=== PATIENT | female | born 1940 | race Caucasian/White ===

== ENCOUNTER 2017-02-25 08:54 | Outpatient (CLI) | payer MEDICARE, BC ==
[~2017-02-25] VITALS: Ht 152.4 cm; Wt 52.3 kg
--- NOTE | ~2017-02-25 | HEMODYNAMI ---
PATIENT:RAJIV AYON MEDICAL RECORD: [id number] : 40 LOCATION:[facility] ADMISSION DATE: 02/25/17 Generatedon:02/25/201711:57 Patient name: RAJIV AYON Patient #: [id number] SSN: : Date of study: 02/25/2017 Page: Of Hemodynamic Procedure Report Patient Data Patient Demographics Procedure consent was obtained First Name: RAJIV Gender: Female Last Name: GABO : 1940 Patient #: [id number] Age: 76 year(s) Race: Unknown Additional ID: [id number] Contact details [address]: [address] [place] [address] State: [place] City: [place] Zip code: [address] Past Medical History Allergies Allergen Reaction Date Comments Reported Other allergy 02/25/2017 FOODS Admission Admission Data Admission Date: 02/25/2017 Admission Time: 8:54 Lab Results Lab Result Date: 02/25/2017 Lab Result Time: 0:00 Biochemistry Name Units Result Min Max BUN mg/dl 10 --(-*--)-- 7 18 Creatinine mg/dl 0.6 --(*---)-- 0.6 1.3 CBC Name Units Result Min Max Hemoglobin g/dl 12.8 -*(----)-- 13.5 17.5 Procedure Procedure Types Cath Procedure Diagnostic Procedure [facility] w/Coronaries PCI Procedure Coronary Stent Initial Miscellaneous Procedures Moderate Sedation up to 15 minutes Procedure Description Procedure Date Procedure Date: 02/25/2017 Procedure Start Time: 11:37 Procedure End Time: 11:51 Procedure Staff Name Function Lance Paez MD Performing Physician Violeta Gamez RT Scrub Keenan Hidalgo RN Nurse Kylie Patel RT Monitor Procedure Data Cath Procedure Fluoroscopy Diagnostic fluoroscopy Total fluoroscopy Time: 3.3 time: 3.3 min min Contrast Material Contrast Material Type Amount (ml) Isovue 300 78 Entry Location Entry Primary Successful Side Size Upsize Upsize Entry Closure Succes sful Closure Location (Fr) 1 (Fr) 2 (Fr) Remarks Device Remarks Femoral Right 5 Fr 6 Fr Exoseal artery Short Estimated blood loss: 10 ml Diagnostic catheters Device Type Used For End Catheter Placement Cordis 5Fr Pigtail LV Angiography Catheter (MP) Cordis 5Fr JL 4.0 Procedure Catheter (MP) Cordis 5Fr 3DRC Catheter Procedure (MP) Procedure Complications No complications Procedure Medications Medication Administration Route Dosage Oxygen NC 2 l/min Lidocaine 2% added to field 20 Heparin Flush Bag added to field 2 bags (1000units/500ml NS) 0.9% NaCl I.V. 100 ml/hr Benadryl I.V. 50 mg Versed I.V. 1 mg Fentanyl I.V. 50 mcg Heparin Bolus I.V. 4000 units Integrilin (Bolus I.V. 4.5 ml 2mg/ml) Versed I.V. 1 mg Fentanyl I.V. 50 mcg Versed I.V. 1 mg Fentanyl I.V. 50 mcg Plavix P.O. 600 mg Hemodynamics Rest HGB: 12.8 (g/dl) Heart Rate: 83 (bpm) Snapshots Pre Cath Intra NCS Post Cath Vital Signs Time Heart Resp SPO2 NIBP (mmHg) Rhythm Pain Sedation Rate (ipm) (%) Status Level (bpm) 11:00:35 84 15 96 133/61(85) NSR 0 (11) 10(A) , No pain 11:04:51 85 19 95 121/59(99) NSR 0 (11) 10(A) , No pain 11:09:03 84 20 95 121/55(95) NSR 0 (11) 10(A) , No pain 11:13:15 87 19 96 122/57(100) NSR 0 (11) 10(A) , No pain 11:17:29 79 19 96 118/53(83) NSR 0 (11) 10(A) , No pain 11:21:41 79 19 94 127/54(86) NSR 0 (11) 10(A) , No pain 11:25:59 78 22 97 110/47(79) NSR 0 (11) 10(A) , No pain 11:30:11 77 20 93 110/45(72) NSR 0 (11) 10(A) , No pain 11:34:21 74 22 93 103/51(70) NSR 0 (11) 10(A) , No pain 11:38:29 78 28 94 103/46(69) NSR 0 (11) 9(A) , No pain 11:42:35 82 27 95 115/54(84) NSR 0 (11) 9(A) , No pain 11:46:47 85 30 96 109/50(76) NSR 0 (11) 9(A) , No pain 11:50:55 86 28 93 121/53(81) NSR 0 (11) 9(A) , No pain 11:56:32 86 30 94 117/53(81) NSR 0 (11) 10(A) , No pain Medications Time Medication Route Dose Verified Delivered Reason Notes Effectiveness by by 11:00:04 Oxygen NC 2 Lance Buffie used for l/min Jeannine Hidalgo RN procedure 11:00:12 Lidocaine 2% added 20ml Lance Lance for local to vial Jeannine Paez MD anesthetic field 11:00:17 Heparin Flush added 2 Lance Lance used for Bag to bags Jeannine Paez MD procedure (1000units/500ml field NS) 11:00:28 0.9% NaCl I.V. 100 Lance Buffie Per physician ml/hr Jeannine Hidalgo RN 11:00:38 Benadryl I.V. 50 mg Lance Buffie used for Jeannine Hidalgo RN procedure 11:37:46 Versed I.V. 1 mg Lance Buffie for sedation Jeannine Hidalgo RN 11:37:51 Fentanyl I.V. 50 Lance Buffie for sedation mcg Jeannine Hidalgo RN 11:40:25 Versed I.V. 1 mg Lance Buffie for sedation Jeannine Hidalgo RN 11:40:28 Fentanyl I.V. 50 Lance Buffie for sedation mcg Jeannine Hidalgo RN 11:41:18 Heparin Bolus I.V. 4000 Lance Buffie for verifi ed units Jeannine Hidalgo RN anticoagulation with dr paez 11:44:10 Integrilin I.V. 4.5 Lacne Buffie for Wasted (Bolus 2mg/ml) ml Jeannine Hidalgo RN antiplatelet 5.5 ml therapy of vial 11:48:09 Versed I.V. 1 mg Lance Buffie for sedation Jeannine Hidalgo RN 11:48:13 Fentanyl I.V. 50 Lance Hussein for sedation mcg Jeannine Hidalgo RN 11:53:25 Plavix P.O. 600 Lance Hussein for mg Jeannine Hidalgo RN antiplatelet therapy Procedure Log Time Note 10:43:53 Diagnostic Cath status Elective 10:44:16 Keenan Hidalgo RN sent for patient. Start room use. 10:44:18 Time tracking: Regular hours 10:44:23 Plan of Care:Hemodynamics will remain stable., Cardiac rhythm will remain stable., Comfort level will be maintained., Respiratory function will remain adequate., Patient/ family verbilizes understanding of procedure., Procedure tolerated without complication., Recovers from procedure without complications.. 10:44:30 Patient received from Outpatients to CCL 2 Alert and oriented. Tansferred to table in Supine position. 10:44:32 Warm blankets applied, and ricardo hugger turned on for patient comfort. 10:44:33 Correct patient and procedure confirmed by team. 10:44:46 H&P Date Dictated: 02/16/2017 Within 30 days and on chart., H&P Addendum completed by physician on day of procedure. (MUST COMPLETE FOR ALL OUTPATIENTS). 10:44:48 Pre-procedure instructions explained to patient. 10:44:49 Family in waiting room. 10:44:51 Patient NPO since Midnight. 10:45:27 Patient allergic to Other allergyFOODS 10:45:32 Is the patient allergic to Iodine/contrast media? No. 10:51:31 Is patient on blood thinner?No 10:51:35 Patient diabetic? No. 10:51:41 Snore? Yes 10:51:42 Sleep apnea? No 10:51:47 Dentures? No ? 10:52:04 Patient pain scale 0/10 ?. 10:52:15 IV patent on arrival in left forearm with 0.9% NaCl at O. 10:55:30 Lab results completed and on chart. 10:56:01 Lab Result : Creatinine 0.6 mg/dl 10:56:01 Lab Result : BUN 10 mg/dl 10:56:01 Lab Result : Hemoglobin 12.8 g/dl 10:56:11 Right groin area was prepped with chlora-prep and draped in sterile fashion 10:56:12 Alarms reviewed by R. N. 10:56:13 Sharps counted by scrub and verified by R.NLevar 10:56:14 Physician paged 10:59:26 Vital chart was started 11:00:04 Oxygen 2 l/min NC was administered by Keenan Hidalgo RN; used for procedure; 11:00:12 Lidocaine 2% 20ml vial added to field was administered by Lance Paez MD; for local anesthetic; 11:00:17 Heparin Flush Bag (1000units/500ml NS) 2 bags added to field was administered by Lance Paez MD; used for procedure; 11:00:28 0.9% NaCl 100 ml/hr I.V. was administered by Keenan Hidalgo RN; Per physician; 11:00:38 Benadryl 50 mg I.V. was administered by Keenan Hidalgo RN; used for procedure; 11:02:04 Zero performed for pressure channel P1 11:03:02 Signed procedure consent form obtained from patient. 11:03:03 ECG and BP/O2 sat monitors applied to patient. 11:03:04 Baseline sample Acquired. 11:03:08 Rhythm: sinus rhythm 11:03:10 Full Disclosure recording started 11:03:35 Airway obstruction? Yes Asthma COPD 11:14:31 Physician arrived 11:14:32 Final Timeout: patient, procedure, and site verified with staff and physician. All members of the team are in agreement. 11:14:35 Right groin site verified by team. 11:14:39 Sedation plan: IV Moderate Sedation Versed, Fentanyl 11:14:47 Physical assessment completed. ASA score P 2 - A patient with mild systemic disease as per Lance Paez MD. 11:36:29 --------ALL STOP TIME OUT------ 11:37:44 Procedure started. 11:37:46 Versed 1 mg I.V. was administered by Keenan Hidalgo RN; for sedation; 11:37:50 Use device set Femoral Dx 11:37:51 Fentanyl 50 mcg I.V. was administered by Keenan Hidalgo RN; for sedation; 11:37:52 Acist Syringe opened to sterile field. 11:37:54 Bag Decanter opened to sterile field. 11:37:55 Medline Cath Pack opened to sterile field. 11:37:55 Terumo 5Fr [place] Sheath opened to sterile field. 11:37:56 St Adolfo 260cm J .035 wire opened to sterile field. 11:37:58 Acist Hand Control opened to sterile field. 11:37:58 Acist Manifold opened to sterile field. 11:37:58 Diagnostic Infinity 5Fr Multipack catheter opened to sterile field. 11:37:59 Tegaderm 4 x 4 opened to sterile field. 11:38:10 A 5 Fr sheath was inserted into the Right Femoral artery 11:38:29 A Cordis 5Fr Pigtail Catheter (MP) was advanced over the wire and used for LV Angiography. 11:39:04 EF : 70 % 11:39:07 Catheter removed. 11:39:14 A Cordis 5Fr JL 4.0 Catheter (MP) was advanced over the wire and used for Procedure. 11:39:18 LCA angiography performed. 11:40:11 Catheter removed. 11:40:18 A Cordis 5Fr 3DRC Catheter (MP) was advanced over the wire and used for Procedure. 11:40:25 Versed 1 mg I.V. was administered by Keenan Hidalgo RN; for sedation; 11:40:28 Fentanyl 50 mcg I.V. was administered by Keenan Hidalgo RN; for sedation; 11:40:53 Catheter removed. 11:41:18 Heparin Bolus 4000 units I.V. was administered by Keenan Hidalgo RN; for anticoagulation; verified with dr paez 11:41:22 Terumo 6Fr [place] Sheath opened to sterile field. 11:41:22 Merit BasixCompak Inflation Kit opened to sterile field. 11:41:23 Najera Whisper J 300cm 0.014 guide wire opened to sterile field. 11:41:23 Cordis 6FR XB 3.5 guide catheter opened to sterile field. 11:41:27 Proceeding to intervention. 11:41:36 Sheath upsized to a 6 Fr Short. 11:41:51 6 Fr XBLAD 3.5 guide catheter was inserted over the wire 11:42:38 Whisper wire advanced. 11:44:10 Integrilin (Bolus 2mg/ml) 4.5 ml I.V. was administered by Keenan Hidalgo RN; for antiplatelet therapy; Wasted 5.5 ml of vial 11:44:40 Inflation number: 1 A Streemio [place] 2.0 X 30 balloon was prepped and advanced across the Mid LAD, then inflated to 17 MATT for 0:10 (min:sec). 11:45:32 Balloon removed over the wire. 11:48:09 Versed 1 mg I.V. was administered by Keenan Hidalgo RN; for sedation; 11:48:10 Inflation Number: 1 A Medtronic Resolute 2.5 X 30 stent was prepped and advanced across the Mid LAD1. The stent was deployed at 11 MATT for 0:10 (min:sec). 11:48:13 Fentanyl 50 mcg I.V. was administered by Keenan Hidalgo RN; for sedation; 11:48:16 Wire removed. 11:48:17 Guide catheter removed. 11:48:27 Cordis 6Fr Exoseal opened to sterile field. 11:49:22 Sheath removed intact; hemostasis achieved with Exoseal to the Right Femoral artery. 11:49:26 Procedure ended.(Physican Out) 11:49:39 Fluoroscopy time 03.30 minutes. 11:49:57 Contrast amount:Isovue 300 78ml. 11:49:59 Sharps counted by scrub and verified by R.N. 11:50:05 Insertion/operative site no bleeding no hematoma. 11:50:09 Post right femoral artery:stable 11:50:11 Post Procedure Pulses reassessed and unchanged 11:50:16 Post procedure rhythm: unchanged. 11:50:19 Estimated blood loss: 10 ml 11:50:21 Post procedure instruction explained to patient.Patient verbalizes understanding. 11:50:35 Procedure type changed to Cath procedure, Diagnostic procedure, LHC, LHC w/Coronaries, PCI procedure, Coronary Stent Initial, Miscellaneous Procedures, Moderate Sedation up to 15 minutes 11:50:37 Procedure and supply charges have been captured, reviewed, submitted and are correct. 11:51:01 Procedure Complication : No complications 11:51:06 Vital chart was stopped 11:51:07 See physician's report for complete and final results. 11:51:09 Report given to Pre/Post Procedure Room. 11:51:15 Patient transfered to Pre/Post Procedure Room with Stretcher. 11:51:18 Procedure ended. 11:51:18 Full Disclosure recording stopped 11:51:22 End room use (Document Last) 11:52:32 ACC-PCI Only Patient was given prescriptions, or instructed by Lance Paez MD to start/continue the following medications upon discharge: Plavix 11:53:25 Plavix 600 mg P.O. was administered by Keenan Hidalgo RN; for antiplatelet therapy; Intervention Summary Intervention Notes Time ActionType Lesion and Equipment Action# Pressure Duration Attributes Used 11:44:40 Inflate Mid LAD [place] 1 17 00:10 balloon Sci [place] 2.0 X 30 balloon 11:48:10 Place stent Mid LAD1 Medtronic 1 11 00:10 Resolute 2.5 X 30 stent Device Usage Item Name Manufacture Quantity Catalog Number Hospital Part Current Mini [facility] Lot# / Charge Number Stock Stock Serial# Code Acist Acist 1 [id number] 090979 286125 435678 20 Syringe Medical Systems Inc Bag Microtek 1 2002S 458061 47099 471135 5 Kivra. Medline Cardinal 1 [id number] 854566 98482 414877 5 Cath Pack Health Terumo 5Fr Terumo 1 [id number] 677381 336224 068219 [address] Adolfo 1 624544 485865 854732 905892 30 260cm J .035 wire Acist Hand Acist 1 39769 566850 582002 928033 5 [place] [employer] Inc Acist Acist 1 08487 383680 552066 140230 5 4-Tell Medical Systems Inc Diagnostic Cardinal 1 [id number] 772852 16778 267292 30 Infinity Health 5Fr Multipack catheter Tegaderm 4 3M 1 1626W 516422 597633 804237 5 x 4 Cordis 5Fr Cardinal 1 776507 5 Pigtail Health Catheter (MP) Cordis 5Fr Cardinal 1 158624 5 JL 4.0 Health Catheter (MP) Cordis 5Fr Cardinal 1 651989 5 3DRC Health Catheter (MP) Terumo 6Fr Terumo 1 PED959 659505 050872 256863 40 [place] Sheath Merit Merit 1 CY6707 086023 456064 198581 15 BasStars Express Medical Inflation Kit Najera Najera 1 [id number] 570363 709410 348158 5 Whisper J Vascular 300cm 0.014 guide wire Cordis 6FR Cardinal 1 [id number] 524213 929689 561828 2 XB 3.5 Health guide catheter Temple[place] Sci Temple[place] 1 [id number] 284796 206415 564678 1 [id number] [place] Scientific 2.0 X 30 balloon Medtronic Medtronic 1 [id number] 790119 419358 3 [id number] Resolute 2.5 X 30 stent Cordis 6Fr Cardinal 1 EX600 008049 205676 986409 10 [facility] Signature Audit Outing Stage Time Signature Unsigned Intra-Procedure 02/25/2017 Kylie Patel 11:57:36 AM RT(R) Signatures Monitor : Kylie Patel Signature : RT Date : Time : [place] [address] [place] [address]
--- NOTE | ~2017-02-25 | OP ---
PATIENT NAME: RAJIV AYON MEDICAL RECORD: [id number] :40 LOCATION:D.CAT ADMISSION DATE: SURGEON: SHAMIR COLMENARES MD DATE OF OPERATION: 02/25/2017 PROCEDURES: 1. PTCA stent, LAD. 2. Left heart catheterization. 3. Selective coronary angiography. 4. Left ventriculogram. INDICATIONS: Angina and coronary artery disease. PROCEDURE IN DETAIL: After informed consent was obtained and after detailed explanation of risks, benefits as well as alternative therapies, the patient elected to proceed with angiogram and angioplasty. The right femoral area is prepped and draped in normal sterile fashion. The right femoral artery was cannulated via modified Seldinger technique with placement of 6-Polish sheath. All catheters exchanged through this sheath. FINDINGS: Left ventriculogram was performed in standard 30-degree FIGUEROA view, reveals good cardiac wall motion throughout all segments. Overall ejection fraction is 60%. SELECTIVE CORONARY ANGIOGRAPHY: 1. Left main showed no significant angiographic disease. 2. Left anterior descending has 95% stenosis proximally. 3. Left circumflex has 90% stenosis in the mid vessel. 4. Right coronary has a 90% stenosis in the proximal vessel. PTCA STENT OF THE LAD: The stent used was a 2.5 x 30 mm Resolute. Result was 0% residual stenosis. OVERALL IMPRESSION: Successful percutaneous transluminal coronary angioplasty stent of the left anterior descending going from 95% initial stenosis to 0% residual. PLAN: PTCA stent of the left circumflex and RCA in the near future in a staged fashion. TRANSINT:[id number] Voice Confirmation ID: [id number] DOCUMENT ID: [id number] SHAMIR COLMENARES MD CC: [id number] DICTATION DATE: 02/25/17 1154 INCOME TAX EXPERT: 02/25/172017 [facility] CLI 02/25/17 [place] [address]
[2017-02-25] MEDS ORDERED: CARDIZEM CD300 MG PO (10:11)
[2017-02-25] MEDS ORDERED: SYNTHROID112 MCG PO (10:12)
[2017-02-25] MEDS ORDERED: PULMICORT0.25 MG/1 INH (10:13)
[2017-02-25] MEDS ORDERED: PROVENTIL/2.5 MG/3 M INH (10:13)
[2017-02-25] MEDS ORDERED: PROAIR HFA8.5 GM INH (10:13)
[2017-02-25 10:15] VITALS: BP 142/57; Ht 152.4 cm; Wt 52.3 kg
[2017-02-25 10:33] LABS: BASOPHILS 0.6 % (0.0-2.0); EOSINOPHILS 4.7 % (0-7); HEMATOCRIT 38.3 % (36.0-48.0); HEMOGLOBIN 12.8 g/dL (12-16); IMMATURE GRANULOCYTES 0.5 % (0-5); LYMPHOCYTES 20.8 % (15-50); MCH 30.8 pg (26.0-34.0); MCHC 33.4 g/dL (31.0-37.0); MCV 92.1 fL (80.0-100.0); MONOCYTES 7.9 % (2-11); NEUTROPHILS 65.5 % (40-80); PLATELET COUNT 171 10x3/uL (130-400); RBC 4.16 10x6/uL (4.00-5.40); RDW 12.4 % (11.5-14.5); WBC 8.8 10x3/uL (4.8-10.8)
[2017-02-25 10:48] LABS: CALC OSMOLALITY 268 mosm/kg (275-300); CALCIUM 8.8 mg/dL (8.5-10.1); CARBON DIOXIDE 20.2 mmol/L (21.0-32.0); CHLORIDE - SERUM 104 mmol/L (98-107); CREATININE - SERUM 0.6 mg/dL (0.6-1.3); GLUCOSE 94 mg/dL (74-106); POTASSIUM - SERUM 4.7 mmol/L (3.5-5.1); SODIUM 135 mmol/L (136-145); UREA NITROGEN 10 mg/dL (7-18); eGFR NON AFRICAN AMERICAN > 90 mL/min (90-120)
[2017-02-25] MEDS ORDERED: PLAVIX75 MG PO (12:29)
--- NOTE | 2017-02-25 12:48 | NUR ---
1230 PT DENIES ANY C/O. DRESSING TO RIGHT GROIN IS CDI, NO BLEEDING OR HEMATOMA NOTED. PEDAL PULSES PALPABLE. VSS, RR EVEN AND UNLABORED. FAMILY AT BEDSIDE AND CALL LIGHT IN REACH. 1245 PT HAS VOIDED QS USING BEDPAN. DENIES ANY C/O. RIGHT GROIN DRESSING CDI, NO BLEEDING OR HEMATOMA NOTED. FAMILY AT BEDSIDE.
--- NOTE | 2017-02-25 15:06 | NUR ---
1245-RESTING WITH RIGHT LEG STRAIGHT, GROIN CDI, NO HEMATOMA OR BLEEDING NOTED, SOFT TO TOUCH
== END 2017-02-25 16:05 | disposition home or self-care (01) ==
LOC: D.CATH 08:54 → EDSEX 11:00 → D.CATH 11:00
PROVIDERS: Internal Medicine Interventional Cardiology
DX: I25.119 Atherosclerotic heart disease of native coronary artery with unspecified angina pectoris (principal); R06.02 Shortness of breath; I10 Essential (primary) hypertension; R94.30 Abnormal result of cardiovascular function study, unspecified
CPT/HCPCS: 93458; C9600

== ENCOUNTER 2017-03-01 07:47 | Outpatient (CLI) | payer MEDICARE, BC ==
[~2017-03-01] VITALS: Ht 152.4 cm; Wt 52.3 kg
--- NOTE | ~2017-03-01 | OP ---
PATIENT NAME: RAJIV AYON MEDICAL RECORD: [id number] :40 LOCATION:D.CAT ADMISSION DATE: SURGEON: SHAMIR COLMENARES MD DATE OF OPERATION: 03/02/2017 PROCEDURES: 1. PTCA stent left circumflex. 2. Selective coronary angiography. INDICATION: Angina and coronary artery disease. PROCEDURE: After informed consent was obtained and after a detailed explanation of risks, benefits as well as alternative therapies, the patient elected to proceed with angiogram and angioplasty. The left femoral area had a preexisting sheath from peripheral intervention. All catheters exchanged through this sheath. FINDINGS: The left circumflex has 80% to 90% stenosis in the mid vessel addressed with a 2.25 x 14 mm Resolute stent. Result was 0% residual stenosis. OVERALL IMPRESSION: Successful percutaneous transluminal coronary angioplasty stent of the left circumflex going from 80% to 90% initial stenosis to 0% residual stenosis. TRANSINT:[id number] Voice Confirmation ID: [id number] DOCUMENT ID: [id number] SHAMIR COLMENARES MD CC: [id number] DICTATION DATE: 03/02/17 1258 SYSTEMS QA ANALYST: 03/02/171947 DEP CLI 03/02/17 [facility] [address] [id number]
--- NOTE | ~2017-03-01 | OP ---
PATIENT NAME: RAJIV AYON MEDICAL RECORD: [id number] :40 LOCATION:D.M2 D.2125 ADMISSION DATE: SURGEON: SHAMIR COLMENARES MD DATE OF OPERATION: 03/01/2017 PROCEDURES: 1. PTCA stent RCA. 2. Selective coronary angiography. INDICATION: Angina and coronary artery disease. PROCEDURE IN DETAIL: After informed consent was obtained and after detailed explanation of risks, benefits as well as alternative therapies, the patient elected to proceed with angiogram and angioplasty. The right femoral area is prepped and draped in normal sterile fashion. The right femoral artery was cannulated via modified Seldinger technique with placement of 6-[place] sheath. All catheters exchanged through this sheath. FINDINGS: The right coronary has a 90% to 95% stenosis throughout the mid portion vessel. This was addressed with a 3.0 x 30 and 3.0 x 18, both Integrity stents. Result was 0% residual stenosis. OVERALL IMPRESSION: Successful percutaneous transluminal coronary angioplasty stent of the right coronary artery going from 90% to 95% initial stenosis to 0% residual. TRANSINT:[id number] Voice Confirmation ID: [id number] DOCUMENT ID: [id number] SHAMIR COLMENARES MD CC: [id number] DICTATION DATE: 03/01/17 1049 RIBBON WINDER: 03/01/17 1209 [facility] [address] [place] [address]
--- NOTE | ~2017-03-01 | HEMODYNAMI ---
PATIENT:RAJIV AYON MEDICAL RECORD: [id number] : 40 LOCATION[facility] [address] [facility] [id number] ADMISSION DATE: 03/01/17 Generatedon:03/02/201712:58 Patient name: RAJIV AYON Patient #: [id number] SSN: : Date of study: 03/02/2017 Page: Of Hemodynamic Procedure Report Patient Data Patient Demographics Procedure consent was obtained First Name: RAJIV Gender: Female Last Name: GABO : 1940 Patient #: [id number] Age: 76 year(s) Race: Unknown Additional ID: [id number] Contact details [address]: [address] [place] [address] State: [place] City: [place] Zip code: [address] Past Medical History Allergies Allergen Reaction Date Comments Reported Other allergy 02/25/2017 FOODS Admission Admission Data Admission Date: 03/01/2017 Admission Time: 7:47 Admit Source: Other Room #: D.2125 Height (in.): 60 BSA: 1.48 (m2) Height (cm.): 152.4 BMI: 22.46 (kg/m2) Weight (lbs.): 115 Weight (kg.): 52.16 Lab Results Lab Result Date: 03/02/2017 Lab Result Time: 0:00 Biochemistry Name Units Result Min Max BUN mg/dl 15 --(--*-)-- 7 18 Creatinine mg/dl 0.5 -*(----)-- 0.6 1.3 CBC Name Units Result Min Max Hemoglobin g/dl 13.4 -*(----)-- 13.5 17.5 Procedure Procedure Types Cath Procedure PCI Procedure Coronary Stent Initial Miscellaneous Procedures Moderate Sedation up to 30 minutes Peripheral vascular Intervention Stent Stent-Fem/Popw/plasty Procedure Description Procedure Date Procedure Date: 03/02/2017 Procedure Start Time: 12:36 Procedure End Time: 12:57 Procedure Staff Name Function Lance Paez MD Performing Physician Bryanna Velasquez RN Nurse Guillermo Hutchinson RT Monitor Farhad Sosa RT Scrub Procedure Data Cath Procedure Fluoroscopy Diagnostic fluoroscopy Total fluoroscopy Time: 8.4 time: 8.4 min min Diagnostic fluoroscopy Total fluoroscopy dose: 243 dose: 243 mGy mGy Contrast Material Contrast Material Type Amount (ml) Isovue 300 124 Entry Location Entry Primary Successful Side Size Upsize Upsize Entry Closure Succes sful Closure Location (Fr) 1 (Fr) 2 (Fr) Remarks Device Remarks Femoral Right 6 Fr 6 Fr Exoseal artery Short Long Diagnostic catheters Device Type Used For End Catheter Placement Diagnostic 5Fr IMT Catheter Procedure Complications No complications Procedure Medications Medication Administration Route Dosage Oxygen NC 2 l/min Heparin Flush Bag added to field 2 bags (1000units/500ml NS) Lidocaine 2% added to field 20 Versed I.V. 1 mg Fentanyl I.V. 50 mcg Versed I.V. 1 mg Fentanyl I.V. 50 mcg Fentanyl I.V. 50 mcg Heparin Bolus I.V. 5000 units Hemodynamics Rest BSA: 1.48 (m2) HGB: 13.4 (g/dl) O2 Consumption: Estimated: 145.98 (ml/min) O2 Co nsumption indexed: Estimated:98.64 (ml/min/m) Heart Rate: 91 (bpm) Snapshots Pre Cath Intra NCS Post Cath Vital Signs Time Heart Resp SPO2 NIBP (mmHg) Rhythm Pain Sedation Rate (ipm) (%) Status Level (bpm) 12:19:03 94 16 97 157/72(123) NSR 0 (11) 10(A) , No pain 12:23:21 91 14 98 159/67(111) NSR 0 (11) 10(A) , No pain 12:27:41 80 16 97 137/64(113) NSR 0 (11) 10(A) , No pain 12:31:53 77 16 95 135/66(105) NSR 0 (11) 10(A) , No pain 12:36:03 79 15 95 134/71(104) NSR 0 (11) 9(A) , No pain 12:40:15 78 16 96 131/63(94) NSR 0 (11) 9(A) , No pain 12:44:27 71 16 96 124/60(93) NSR 0 (11) 9(A) , No pain 12:48:37 77 16 97 127/61(103) NSR 0 (11) 9(A) , No pain 12:52:48 83 16 96 120/56(92) NSR 0 (11) 9(A) , No pain 12:56:40 81 16 96 131/60(104) NSR 0 (11) 9(A) , No pain Medications Time Medication Route Dose Verified Delivered Reason Notes Effectiveness by by 12:21:51 Oxygen NC 2 Lance Bryanna Per physician l/min Jeannine Velasquez RN 12:21:59 Heparin Flush added 2 Lance Lance used for Bag to bags Jeannine Paez MD procedure (1000units/500ml field NS) 12:22:06 Lidocaine 2% added 20ml Lance Lance used for to vial Jeannine Paez MD procedure field 12:28:43 Versed I.V. 1 mg Lance Bryanna for sedation Jeannine Velasquez RN 12:28:49 Fentanyl I.V. 50 Lance Bryanna for sedation mcg Jeannine Velasquez RN 12:30:49 Versed I.V. 1 mg Lance Bryanna for sedation Jeannine Velasquez RN 12:31:13 Fentanyl I.V. 50 Lance Bryanna for sedation mcg Jeannine Velasquez RN 12:34:01 Fentanyl I.V. 50 Lance Bryanna for sedation mcg Jeannine Velasquez RN 12:35:32 Heparin Bolus I.V. 5000 Lance Bryanna for dose units Jeannine Velasquez RN anticoagulation verified [facility] Procedure Log Time Note 11:45:29 Guillermo Hutchinson RT(R) sent for patient. Start room use. 12:03:41 Time tracking: Regular hours 12:03:45 Plan of Care:Hemodynamics will remain stable., Cardiac rhythm will remain stable., Comfort level will be maintained., Respiratory function will remain adequate., Patient/ family verbilizes understanding of procedure., Procedure tolerated without complication., Recovers from procedure without complications.. 12:13:27 Patient received from Pre/Post Procedure Room to CCL 2 Alert and oriented. Tansferred to table in Supine position. 12:13:28 Warm blankets applied, and ricardo hugger turned on for patient comfort. 12:13:28 Correct patient and procedure confirmed by team. 12:13:29 Signed procedure consent form obtained from patient. 12::30 ECG and BP/O2 sat monitors applied to patient. 12:17:52 Vital chart was started 12:21:51 Oxygen 2 l/min NC was administered by Bryanna Velasquez RN; Per physician; 12:21:59 Heparin Flush Bag (1000units/500ml NS) 2 bags added to field was administered by Lance Paez MD; used for procedure; 12::06 Lidocaine 2% 20ml vial added to field was administered by Lance Paez MD; used for procedure; 12::23 Baseline sample Acquired. 12::27 Rhythm: sinus tachycardia 12::28 Full Disclosure recording started 12:26:12 H&P Date Dictated: 03/01/2017 Within 30 days and on chart.. 12:26:13 Pre-procedure instructions explained to patient. 12:26:14 Pre-op teaching completed and patient verbalized understanding. 12:26:16 Family in waiting room. 12:26:20 Patient NPO since Midnight. 12:26:37 Is the patient allergic to Iodine/contrast media? No. 12:26:39 Was the patient premedicated? No 12:26:44 Is patient on blood thinner?Yes 12:26:47 ACC The patient was administered the following blood thiners within the last 24 hours: ACCPlavix 12:26:49 Patient diabetic? No. 12:26:50 ----Pre-sedation anethsthesia assessment.---- 12::52 Previous problem with sedation/anesthesia? No ? 12::54 Snore? Yes 12:26:55 Sleep apnea? No 12:27:04 Deviated septum? No 12:27:05 Opens mouth fully? Yes 12:27:06 Sticks out tongue? Yes 12:27:08 Airway obstruction? No ? 12:27:18 Dentures? Yes out 12::23 Pre procedure: left dorsailis pedis pulse 0-Absent 12:27:30 Patient pain scale 0/10 ?. 12:27:41 IV patent on arrival in left antecubital with 0.9% NaCl at 10ml/hr. 12:28:14 Lab Result : BUN 15 mg/dl 12::14 Lab Result : Hemoglobin 13.4 g/dl 12:28:14 Lab Result : Creatinine 0.5 mg/dl 12::32 Lab results completed and on chart. 12::36 Bilateral groins area was prepped with chlora-prep and draped in sterile fashion 12::37 Alarms reviewed by R. N. 12::38 Sharps counted by scrub and verified by R.N. 12::38 --------ALL STOP TIME OUT------ 12::39 Final Timeout: patient, procedure, and site verified with staff and physician. All members of the team are in agreement. 12:28:40 Bilateral groins site verified by team. 12::43 Versed 1 mg I.V. was administered by Bryanna Velasquez RN; for sedation; 12::44 Physical assessment completed. ASA score P 2 - A patient with mild systemic disease as per Lance Paez MD. 12::49 Fentanyl 50 mcg I.V. was administered by Bryanna Velasquez RN; for sedation; 12:28:49 Sedation plan: IV Moderate Sedation Versed, Fentanyl 12:28:54 Use device set Femoral PCI 12:28:56 Acist Syringe opened to sterile field. 12:28:56 Acist Hand Control opened to sterile field. 12:28:56 Bag Decanter opened to sterile field. 12:28:57 Medline Cath Pack opened to sterile field. 12:28:57 Terumo 6Fr Black Sheath opened to sterile field. 12:28:58 St Adolfo 260cm J .035 wire opened to sterile field. 12:28:58 Merit BasixCompak Inflation Kit opened to sterile field. 12:28:58 Acist Manifold opened to sterile field. 12:28:59 Tegaderm 4 x 4 opened to sterile field. 12:29:05 Najera Whisper J 300cm 0.014 guide wire opened to sterile field. 12:30:49 Versed 1 mg I.V. was administered by Bryanna Velasquez RN; for sedation; 12:31:13 Fentanyl 50 mcg I.V. was administered by Bryanna Velasquez RN; for sedation; 12:34:01 Fentanyl 50 mcg I.V. was administered by Bryanna Velasquez RN; for sedation; 12:34:41 Terumo 6Fr Black Destination Sheath opened to sterile field. 12:34:44 Procedure started. 12:35:32 Heparin Bolus 5000 units I.V. was administered by Bryanna Velasquez RN; for anticoagulation; dose verified wtih dr paez 12:35:58 Zero performed for pressure channel P1 12:36:12 Local anesthetic to left femerol artery with Lidocaine 2% by Lance Paez MD.INITIAL ACCESS ONLY 12:36:24 A 6 Fr Short sheath was inserted into the Right Femoral artery 12:36:40 A Diagnostic 5Fr IMT Catheter was advanced over the wire and used for . 12:36:47 5 Fr IMT guide catheter was inserted over the wire 12:36:50 GLIDE wire advanced. 12:37:36 Terumo ANGLED SS 260CM glide wire opened to sterile field. 12:37:45 Dingle Sci Choice PT Extra Support J 300cm .014 gu opened to sterile field. 12:38:20 Catheter removed. 12:38:27 Sheath upsized to a 6 Fr Long. 12:39:27 Wire removed. 12:39:32 CPTES wire advanced. 12:41:43 Inflation number: 1 A Dingle Sci Burnet 4.0 X 20 balloon was prepped and advanced across the Mid Superficial Femoral, Right, then inflated to 7 MATT for 0:12 (min:sec). 12:42:00 Balloon removed over the wire. 12:43:43 Cordis SMART Flex 5 X 30 X 120 stent was deployed across Mid Superficial Femoral, Right . 12:43:47 Stent catheter was removed intact over wire. 12:44:43 Inflation number: 2 The Dingle Sci Burnet 4.0 X 20 balloon was reinflated across the Mid Superficial Femoral, Right, to 7 MATT for 0:10 (min:sec). 12:45:20 Balloon removed over the wire. 12:45:22 Wire removed. 12:46:00 6 Fr XBLAD 3.5 guide catheter was inserted over the wire 12:46:06 WHISPER wire advanced. 12:48:02 Cordis 6Fr Exoseal opened to sterile field. 12:49:38 Inflation number: 1 A Dingle Sci Burnet 2.0 X 15 balloon was prepped and advanced across the Mid CX, then inflated to 13 MATT for 0:12 (min:sec). 12:49:42 Balloon removed over the wire. 12:52:31 Inflation Number: 2 A Medtronic Resolute 2.25 X 14 stent was prepped and advanced across the Mid CX. The stent was deployed at 9 MATT for 0:13 (min:sec). 12:52:39 Stent catheter was removed intact over wire. 12:52:40 Wire removed. 12:52:40 Guide catheter removed. 12:52:48 Sheath removed intact; hemostasis achieved with Exoseal to the Right Femoral artery. 12:52:51 Procedure ended.(Physican Out) 12:53:06 Procedure type changed to Cath procedure, PCI procedure, Coronary Stent Initial, Miscellaneous Procedures, Moderate Sedation up to 30 minutes, Peripheral vascular Intervention, Stent, Stent-Fem/Popw/plasty 12:53:12 Fluoroscopy time 08.40 minutes. 12:53:17 Fluoroscopy dose: 243 mGy 12:53:17 Flurop Dose total: 243 12:54:45 Contrast amount:Isovue 300 124ml. 12:54:46 Sharps counted by scrub and verified by R.N. 12:54:48 Insertion/operative site no bleeding no hematoma. 12:54:55 Post-op/insertion site Left Femoral artery dressed using a 4 x 4 and Tegaderm. 12:54:59 Post left femerol artery:stable 12:55:02 Post procedure: left dorsailis pedis pulse 1+ Palpable, but thready & weak; easily obliterated. 12:55:06 Post procedure rhythm: sinus rhythm 12:55:48 Post procedure instruction explained to patient.Patient verbalizes understanding. 12:57:08 Procedure and supply charges have been captured, reviewed, submitted and are correct. 12:57:12 Procedure Complication : No complications 12:57:18 Vital chart was stopped 12:57:19 See physician's report for complete and final results. 12:57:23 Report given to PCU. 12:57:26 Patient transfered to PCU with Bed. 12:57:28 Procedure ended. 12:57:28 Full Disclosure recording stopped 12:57:33 End room use (Document Last) Intervention Summary Intervention Notes Time ActionType Lesion and Equipment Action# Pressure Duration Attributes Used 12:41:43 Inflate Mid Dingle 1 7 00:12 balloon Superficial Sci Femoral, Burnet Right 4.0 X 20 balloon 12:43:43 Deploy self Mid Cordis 1 expanding Superficial SMART stent Femoral, Flex 5 X Right 30 X 120 stent 12:44:43 Reinflate Mid Dingle 2 7 00:10 balloon Superficial Sci Femoral, Burnet Right 4.0 X 20 balloon 12:49:38 Inflate Mid CX Dingle 1 13 00:12 balloon Sci Burnet 2.0 X 15 balloon 12:52:31 Place stent Mid CX Medtronic 2 9 00:13 Resolute 2.25 X 14 stent Device Usage Item Name Manufacture Quantity Catalog Number Hospital Part Current Mini mal Lot# / Charge Number Stock Stock Serial# Code Acist Acist 1 [id number] [id number] 455937 [id number] 20 Syringe Medical Systems Inc Acist Hand Acist 1 61057 513263 968447 056201 5 Control Medical Systems MicroInvention Bag Microtek 1 2002S [id number] 16290 127385 5 DecFookyZ Medical Inc. Medline Cardinal 1 [id number] 393953 03594 318883 5 Cath Pack Health Terumo 6Fr Terumo 1 [id number] 935028 662168 899168 [address] Adolfo St Adolfo 1 002898 455945 105955 082093 30 260cm J .035 wire Merit Merit 1 [id number] 047995 385953 732386 15 CaterCow Medical Inflation Kit Acist Acist 1 14142 731145 916660 405038 5 Sinobpo Medical Systems Inc Tegaderm 4 3M 1 1626W 491752 748727 697575 5 x 4 Najera Najera 1 [id number] 641217 788374 119718 5 Whisper J Vascular 300cm 0.014 guide wire Terumo 6Fr Terumo 1 RSR01 300823 87015 591055 5 Black Destination Sheath Diagnostic Dingle 1 [id number] 839221 649330 13448 5 5Fr IMT Scientific Catheter Terumo Terumo 1 LT2240 451610 750980 506752 5 ANGLED SS 260CM glide wire Dingle Sci Dingle 1 [id number] 317139 808734 649062 5 [id number] Choice PT Scientific Extra Support J 300cm .014 gu Dingle Sci Dingle 1 [id number] 706031 664700 816368 1 [id number] Burnet Scientific 4.0 X 20 balloon Cordis Cardinal 1 [id number] 741790 561823 0 SMART Flex Health 5 X 30 X 120 stent Cordis 6Fr Cardinal 1 EX600 144519 561159 951100 10 [employer]nl [facility] 1 [id number] 543749 352361 907869 1 [id number] Ajaline 2.0 X 15 balloon Medtronic Medtronic 1 [id number] 215274 011756 9 [id number] Resolute 2.25 X 14 stent Signature Audit [place] Stage Time Signature Unsigned Intra-Procedure 03/02/2017 Guillermo Hutchinson 12:58:24 PM RT(R) Signatures Monitor : Guillermo Hutchinson RT Signature : Date : Time : [place] [id number] [facility] [address]
--- NOTE | ~2017-03-01 | OP ---
PATIENT NAME: RAJIV AYON MEDICAL RECORD: [id number] :40 LOCATION:D.M2 D.2125 ADMISSION DATE: SURGEON: SHAMIR COLMENARES MD DATE OF OPERATION: 03/01/2017 PROCEDURES: 1. Aortofemoral runoff. 2. Abdominal aortography. INDICATIONS: Claudication and peripheral vascular disease. PROCEDURE IN DETAIL: After informed consent was obtained and after a detailed explanation of risks, benefits as well as alternative therapies, the patient elected to proceed with angiogram and aortofemoral runoff. The right femoral area had a pre-existing sheath from coronary intervention. All catheters exchanged through this sheath. FINDINGS: The abdominal aortography was performed. The catheter was pulled down for aortofemoral runoff. Abdominal aortography reveals no significant abdominal aortic disease, no dissection or aneurysm formation. No renal artery stenosis. RIGHT LEG: A. Iliac: The common internal and external iliacs have mild irregularities, but no flow-limiting stenosis. B. Femoral system: The common superficial and deep femoral have [id number] irregularities, but no flow-limiting stenosis. C. Popliteal and infrapopliteal vessels: The popliteal has a 95% stenosis at the distal aspect of this. There appears to be 2-vessel runoff through the posterior tibial and peroneal. LEFT LEG: A. Iliacs: The common internal and external iliacs have mild irregularities, but no flow-limiting stenosis. B. Femoral system: The common and deep femoral are widely patent. Superficial femoral has a long total occlusion to the mid portion of vessels, reconstitutes distally from collaterals off the deep femoral. This appears to be patent in the distal superficial femoral artery. C: The popliteal vessels as well appear to be patent. OVERALL IMPRESSION: Subtotal stenosis of the popliteal on the right that is definitely amenable to transcatheter revascularization. Long total occlusion of the left SFA, this is questionably amenable to transcatheter revascularization. TRANSINT:[id number] Voice Confirmation ID: [id number] DOCUMENT ID: [id number] SHAMIR COLMENARES MD CC: [id number] DICTATION DATE: 03/01/17 1048 MANAGER ENTERPRISE: 03/01/17 1147 [facility] [address] [place] [address]
--- NOTE | ~2017-03-01 | DS ---
PATIENT:RAJIV VALDES :40 MEDICAL RECORD: [id number] DISCHARGE SUMMARY ADMISSION DATE: 03/01/17 DISCHARGE DATE: 03/02/17 DATE OF DISCHARGE: 03/02/2017 DIAGNOSES: 1. Angina. 2. Claudication. 3. Peripheral vascular disease. 4. Coronary artery disease. 5. Status post percutaneous transluminal coronary angioplasty stent right coronary artery and left circumflex this admission. 6. Status post WIRE BENDER HAND stent right popliteal this admission. 7. Chronic obstructive pulmonary disease. 8. Hypertension. 9. Hyperlipidemia. HOSPITAL COURSE: Mrs. Valdes presents with anginal and claudication symptomatology, found to have 2-vessel coronary artery disease of the RCA and left circumflex, underwent successful PTCA stent on both territories, as well as WIRE BENDER HAND stent of subtotal right popliteal, had an uneventful postop course. She was discharged home to follow up with [facility] in 1 month and continue her medications as she is already on aspirin and Plavix. TRANSINT:[id number] Voice Confirmation ID: [id number] DOCUMENT ID: [id number] SHAMIR COLMENARES MD CC: [id number] DICTATION DATE: 03/02/17 1259 NOVELTY DIPPER: 03/03/17 0047 DEP CLI 03/02/17 [facility] [address] [place] [id number]
--- NOTE | ~2017-03-01 | HEMODYNAMI ---
PATIENT:RAJIV AYON MEDICAL RECORD: [id number] : 40 LOCATION:[facility] ADMISSION DATE: 03/01/17 Generatedon:03/01/201710:47 Patient name: RAJIV AYON Patient #: [id number] SSN: : Date of study: 03/01/2017 Page: Of Hemodynamic Procedure Report Patient Data Patient Demographics Procedure consent was obtained First Name: RAJIV Gender: Female Last Name: GABO : 1940 Patient #: [id number] Age: 76 year(s) Race: Unknown Additional ID: [id number] Contact details Address: [address] [place] [address] State: [place] City: [place] Zip code: [address] Past Medical History Allergies Allergen Reaction Date Comments Reported Other allergy 02/25/2017 FOODS Admission Admission Data Admission Date: 03/01/2017 Admission Time: 7:47 Admit Source: Other Height (in.): 60 BSA: 1.48 (m2) Height (cm.): 152.4 BMI: 22.46 (kg/m2) Weight (lbs.): 115 Weight (kg.): 52.16 Lab Results Lab Result Date: 03/01/2017 Lab Result Time: 8:25 Biochemistry Name Units Result Min Max BUN mg/dl 15 --(--*-)-- 7 18 Creatinine mg/dl 0.5 -*(----)-- 0.6 1.3 CBC Name Units Result Min Max Hematocrit % 40 -*(----)-- 42 54 Hemoglobin g/dl 13.4 -*(----)-- 13.5 17.5 Procedure Procedure Types Cath Procedure PCI Procedure Coronary Stent Initial Miscellaneous Procedures Moderate Sedation up to 30 minutes Peripheral Cath Diagnostic Procedure Cath Peripheral Zqvpu-Dgijqxy-Jqv-Off Four Vessel Arteriogram Procedure Description Procedure Date Procedure Date: 03/01/2017 Procedure Start Time: 10:18 Procedure End Time: 10:46 Procedure Staff Name Function Lance Paez MD Performing Physician Roc Reddy RT Scrub Alejandro Chakraborty RN Nurse Tulio Hammond RT Monitor Procedure Data Cath Procedure Fluoroscopy Diagnostic fluoroscopy Total fluoroscopy Time: 10 time: 10 min min Diagnostic fluoroscopy Total fluoroscopy dose: 200 dose: 200 mGy mGy Contrast Material Contrast Material Type Amount (ml) Isovue 300 172 Entry Location Entry Primary Successful Side Size Upsize Upsize Entry Closure Succes sful Closure Location (Fr) 1 (Fr) 2 (Fr) Remarks Device Remarks Femoral Right 7 Fr Exoseal artery Short Estimated blood loss: 10 ml Diagnostic catheters Device Type Used For End Catheter Placement Cordis 4Fr JB3 catheter Procedure Cordis Tempo 5Fr UF Procedure catheter Procedure Complications No complications Procedure Medications Medication Administration Route Dosage Oxygen NC 2 l/min Heparin Flush Bag added to field 2 bags (1000units/500ml NS) 0.9% NaCl I.V. 100 ml/hr Fentanyl I.V. 50 mcg Versed I.V. 1 mg Fentanyl I.V. 50 mcg Versed I.V. 1 mg Heparin Bolus I.V. 4000 units Fentanyl I.V. 50 mcg Fentanyl I.V. 50 mcg Hemodynamics Rest BSA: 1.48 (m2) HGB: 13.4 (g/dl) O2 Consumption: Estimated: 145.67 (ml/min) O2 Co nsumption indexed: Estimated:98.43 (ml/min/m) Heart Rate: 90 (bpm) Snapshots Pre Cath Intra NCS Post Cath Vital Signs Time Heart Resp SPO2 etCO2 BN2xvnk NIBP (mmHg) Rhythm Pain Sedation Rate (ipm) (%) (mmHg) (mmHg) Status Level (bpm) 9:32:35 87 18 97 0 0 150/72(101) NSR 0 (11) 10(A) , No pain 9:36:53 92 16 95 0 0 138/57(94) NSR 0 (11) 10(A) , No pain 9:41:09 92 16 95 0 0 133/58(98) NSR 0 (11) 10(A) , No pain 9:45:25 93 17 95 0 0 136/55(93) NSR 0 (11) 10(A) , No pain 9:49:42 84 17 93 0 0 125/59(86) NSR 0 (11) 10(A) , No pain 9:53:55 84 17 94 0 0 116/52(82) NSR 0 (11) 10(A) , No pain 9:58:05 85 17 95 0 0 126/53(97) NSR 0 (11) 10(A) , No pain 10:02:19 86 18 95 0 0 120/52(94) NSR 0 (11) 10(A) , No pain 10:06:31 82 18 94 0 0 119/57(94) NSR 0 (11) 10(A) , No pain 10:10:43 81 18 93 0 0 111/50(86) NSR 0 (11) 10(A) , No pain 10:14:51 81 17 94 0 0 118/56(76) NSR 0 (11) 10(A) , No pain 10:19:01 89 17 95 0 0 120/56(89) NSR 0 (11) 9(A) , No pain 10:23:13 83 19 91 0 0 115/51(76) NSR 0 (11) 9(A) , No pain 10:27:23 86 18 90 0 0 125/54(95) NSR 0 (11) 9(A) , No pain 10:31:37 86 17 92 0 0 125/55(87) NSR 0 (11) 9(A) , No pain 10:35:49 88 17 95 0 0 133/62(99) NSR 0 (11) 9(A) , No pain 10:39:58 93 17 94 0 0 138/74(100) NSR 0 (11) 9(A) , No pain 10:44:12 96 18 95 0 0 147/68(112) NSR 0 (11) 9(A) , No pain Medications Time Medication Route Dose Verified Delivered Reason Notes Effectiveness by by 9:33:26 Oxygen NC 2 Alejandro Allen Per physician l/min Palmer Chakraborty RN RN 9:33:37 Heparin Flush added 2 Alejandro Allen used for Bag to bags Palmer Chakraborty research recruiter (1000units/500ml field RN NS) 9:33:48 0.9% NaCl I.V. 100 Alejandro Allen Per physician ml/hr Palmer Chakraborty RN RN 10:14:27 Fentanyl I.V. 50 Alejandro Allen for sedation [facility] Palmer Chakraborty RN RN 10:14:34 Versed I.V. 1 mg Alejandro Alejandro for sedation Palmer Chakraborty RN RN 10:19:18 Fentanyl I.V. 50 Alejandro Alejandro for sedation mcg Palmer Chakraborty RN RN 10:19:23 Versed I.V. 1 mg Alejandro Alejandro for sedation Palmer Chakraborty RN RN 10:19:32 Heparin Bolus I.V. 4000 Alejandro Alejandro for units Palmer Chakraborty RN anticoagulation RN 10:22:05 Fentanyl I.V. 50 Alejandro Alejandro for sedation mcg Palmer Chakraborty RN RN 10:35:09 Fentanyl I.V. 50 Alejandro Alejandro for sedation mcg Palmer Chakraborty RN recyclable materials sorter Log Time Note 9:11:34 Roc Reddy RT(R) (CV) sent for patient. Start room use. 9:21:12 Informed consent obtained and on chart 9:21:16 Admit Source: Other 9:21:35 Time tracking: Regular hours 9:21:39 Plan of Care:Hemodynamics will remain stable., Cardiac rhythm will remain stable., Comfort level will be maintained., Respiratory function will remain adequate., Patient/ family verbilizes understanding of procedure., Procedure tolerated without complication., Recovers from procedure without complications.. 9:26:53 Patient received from Pre/Post Procedure Room to CCL 1 Alert and oriented. Tansferred to table in Supine position. 9:26:55 Warm blankets applied, and ricardo hugger turned on for patient comfort. 9:26:56 Correct patient and procedure confirmed by team. 9:26:58 ECG and BP/O2 sat monitors applied to patient. 9:31:27 Vital chart was started 9:33:24 Baseline sample Acquired. 9:33:26 Oxygen 2 l/min NC was administered by Alejandro Chakraborty RN; Per physician; 9:33:28 Rhythm: sinus rhythm 9:33:37 Heparin Flush Bag (1000units/500ml NS) 2 bags added to field was administered by Alejandro Chakraborty RN; used for procedure; 9:33:48 0.9% NaCl 100 ml/hr I.V. was administered by Alejandro Chakraborty RN; Per physician; 9:33:48 H&P Date Dictated: 02/25/2017 Within 30 days and on chart., H&P Addendum completed by physician on day of procedure. (MUST COMPLETE FOR ALL OUTPATIENTS). 9:37:09 Pre-procedure instructions explained to patient. 9:37:09 Pre-op teaching completed and patient verbalized understanding. 9:37:11 Family in waiting room. 9:37:12 Patient NPO since Midnight. 9:37:15 Is the patient allergic to Iodine/contrast media? No. 9:37:17 Is patient on blood thinner?Yes 9:37:19 ACC The patient was administered the following blood thiners within the last 24 hours: ACCPlavix 9:37:21 Patient diabetic? No. 9:37:24 Previous problem with sedation/anesthesia? No ? 9:37:24 Snore? Yes 9:37:27 Sleep apnea? No 9:37:28 Deviated septum? No 9:37:29 Opens mouth fully? Yes 9:37:31 Sticks out tongue? Yes 9:37:36 Airway obstruction? Yes copd asthma 9:37:40 Dentures? Yes out 9:37:47 Pre procedure: right dorsailis pedis pulse Doppler 9:37:50 Patient pain scale 0/10 ?. 9:38:08 IV patent on arrival in left forearm with 0.9% NaCl at O. 9:38:44 Lab results completed and on chart. 9:39:24 Lab Result : BUN 15 mg/dl 9:39:24 Lab Result : Creatinine 0.5 mg/dl 9:39:24 Lab Result : Hemoglobin 13.4 g/dl 9:39:24 Lab Result : Hematocrit 40 % 9:39:29 Right groin area was prepped with chlora-prep and draped in sterile fashion 9:39:31 Alarms reviewed by R. N. 9:39:31 Sharps counted by scrub and verified by R.N. 9:39:35 Use device set Femoral PCI 9:39:37 Tegaderm 4 x 4 opened to sterile field. 9:39:38 Acist Manifold opened to sterile field. 9:39:39 Acist Syringe opened to sterile field. 9:39:39 Acist Hand Control opened to sterile field. 9:39:40 Bag Decanter opened to sterile field. 9:39:40 Medline Cath Pack opened to sterile field. 9:39:42 St Adolfo 260cm J .035 wire opened to sterile field. 9:39:42 Merit BasixCompak Inflation Kit opened to sterile field. 9:39:50 Terumo 7Fr [place] Sheath opened to sterile field. 9:39:59 Najera Whisper J 300cm 0.014 guide wire opened to sterile field. 9:42:37 Zero performed for pressure channel P1 9:48:45 Patient Weight : 115 kg 9:48:49 Patient Height : 60 cm 10:14:02 Physician arrived 10::02 --------ALL STOP TIME OUT------ 10:14:03 Final Timeout: patient, procedure, and site verified with staff and physician. All members of the team are in agreement. 10:14:05 Right groin site verified by team. 10:14:09 Physical assessment completed. ASA score P 2 - A patient with mild systemic disease as per Lance Paez MD. 10:14:12 Sedation plan: IV Moderate Sedation Versed, Fentanyl 10:14:27 Fentanyl 50 mcg I.V. was administered by Alejandro Chakraborty RN; for sedation; 10:14:34 Versed 1 mg I.V. was administered by Alejandro Chakraborty RN; for sedation; 10:16:18 Medtronic Launcher 7Fr HS I SH guide catheter opened to sterile field. 10:18:05 Procedure started. 10:18:05 Full Disclosure recording started 10:18:08 Local anesthetic to right femoral artery with Lidocaine 2% by Lance Paez MD.INITIAL ACCESS ONLY 10:18:19 A 7 Fr Short sheath was inserted into the Right Femoral artery 10:19:16 7 Fr HSI SH guide catheter was inserted over the wire 10:19:18 Fentanyl 50 mcg I.V. was administered by Alejandro Chakraborty RN; for sedation; 10:19:23 Versed 1 mg I.V. was administered by Alejandro Chakraborty RN; for sedation; 10:19:25 whisper wire advanced. 10:19:32 Heparin Bolus 4000 units I.V. was administered by Alejandro Chakraborty RN; for anticoagulation; 10:20:35 Wire advanced across lesion. 10:21:38 The Medtronic Integrity 3.0 X 30 stent was advanced then removed because of failure to cross lesion 10:22:05 Fentanyl 50 mcg I.V. was administered by Alejandro Chakraborty RN; for sedation; 10:23:02 Inflation number: 1 A [place] Sci Bartow 3.0 X 20 balloon was prepped and advanced across the Mid RCA, then inflated to 13 MATT for 0:10 (min:sec). 10:23:15 Inflation number: 2 The [place] Sci Bartow 3.0 X 20 balloon was reinflated across the Mid RCA, to 13 MATT for 0:10 (min:sec). 10:23:32 Inflation number: 3 The [place] Sci Bartow 3.0 X 20 balloon was reinflated across the Mid RCA, to 13 MATT for 0:10 (min:sec). 10:24:49 Balloon removed over the wire. 10:25:17 Inflation Number: 4 A Medtronic Integrity 3.0 X 30 stent was prepped and advanced across the Mid RCA. The stent was deployed at 13 MATT for 0:10 (min:sec). 10:25:18 Stent catheter was removed intact over wire. 10:27:33 Najera Whisper J 300cm 0.014 guide wire opened to sterile field. 10:28:31 whisper wire advanced. 10:28:32 Wire advanced across lesion. 10:28:42 The Medtronic Integrity 3.0 X 18 stent was advanced then removed because of failure to cross lesion 10:30:03 The [place] Sci Bartow 3.0 X 20 balloon was advanced and then removed because of failure to cross lesion 10:32:05 Inflation number: 5 A Euphora 3.0 x 20 Balloon was prepped and advanced across the Mid RCA, then inflated to 13 MATT for 0:10 (min:sec). 10:32:28 Inflation number: 6 The Euphora 3.0 x 20 Balloon was reinflated across the Mid RCA, to 19 MATT for 0:10 (min:sec). 10:33:11 Balloon removed over the wire. 10:34:07 Wire removed. 10:34:48 Inflation Number: 1 A Medtronic Integrity 3.0 X 18 stent was prepped and advanced across the Prox RCA. The stent was deployed at 19 MATT for 0:10 (min:sec). 10:34:50 Stent catheter was removed intact over wire. 10:34:51 Wire removed. 10:34:52 Guide catheter removed. 10:35:09 Fentanyl 50 mcg I.V. was administered by Alejandro Chakraborty RN; for sedation; 10:35:49 Procedure type changed to Cath procedure, PCI procedure, Coronary Stent Initial, Miscellaneous Procedures, Moderate Sedation up to 30 minutes, Peripheral Cath Diagnostic Procedure, Cath Peripheral, Rxoig-Jlbllyl-Rbh-Off, Four Vessel Arteriogram 10:36:05 A Cordis 4Fr JB3 catheter was advanced over the wire and used for Procedure. 10:36:38 Left carotid angiography performed. 10:36:56 Left subclavian angiography performed 10:37:33 Right subclavian angiography performed 10:37:34 Right carotid angiography performed. 10:37:44 Catheter removed. 10:37:49 A Cordis Tempo 5Fr UF catheter was advanced over the wire and used for Procedure. 10:38:35 Abdominal Aortagram was performed. 10:38:45 Left leg runoff performed. 10:39:06 Right leg runoff performed. 10:39:13 Catheter removed. 10:42:58 Cordis 7Fr Exoseal opened to sterile field. 10:43:06 Sheath removed intact; hemostasis achieved with Exoseal to the Right Femoral artery. 10:43:07 Procedure ended.(Physican Out) 10:43:28 Fluoroscopy time 10.00 minutes. 10:43:37 Flurop Dose total: 200 10:43:37 Fluoroscopy dose: 200 mGy 10:43:41 Contrast amount:Isovue 300 172ml. 10:43:43 Sharps counted by scrub and verified by R.N. 10:43:44 Insertion/operative site no bleeding no hematoma. 10:43:47 Post-op/insertion site Right Femoral artery dressed using a 4 x 4 and Tegaderm. 10:43:51 Post right femoral artery:stable, soft, clean and dry 10:43:57 Post Procedure Pulses reassessed and unchanged 10:44:01 Post-procedure physical assessment completed. ASA score P 2 - A patient with mild systemic disease as per Lance Paez MD. 10:44:03 Post procedure rhythm: unchanged. 10:44:05 Estimated blood loss: 10 ml 10:44:07 Post procedure instruction explained to patient.Patient verbalizes understanding. 10:44:07 Patient needs reinforcement of post procedure teaching. 10:45:58 Procedure and supply charges have been captured, reviewed, submitted and are correct. 10:45:59 Vital chart was stopped 10:46:02 Procedure Complication : No complications 10:46:04 See physician's report for complete and final results. 10:46:10 Report given to PCU. 10:46:14 Patient transfered to PCU with Stretcher. 10:46:16 Procedure ended. 10:46:16 Full Disclosure recording stopped 10:46:19 End room use (Document Last) Intervention Summary Intervention Notes Time ActionType Lesion and Equipment Action# Pressure Duration Attributes Used 10:21:38 Discard Medtronic Stent Integrity 3.0 X 30 stent 10:23:02 Inflate Mid RCA [place] 1 13 00:10 balloon Sci Bartow 3.0 X 20 balloon 10:23:15 Reinflate Mid RCA [place] 2 13 00:10 balloon Sci Bartow 3.0 X 20 balloon 10:23:32 Reinflate Mid RCA [place] 3 13 00:10 balloon Sci Bartow 3.0 X 20 balloon 10:25:17 Place stent Mid RCA Medtronic 4 13 00:10 Integrity 3.0 X 30 stent 10:28:42 Discard Medtronic Stent Integrity 3.0 X 18 stent 10:30:03 Discard [place] Balloon Sci Bartow 3.0 X 20 balloon 10:32:05 Inflate Mid RCA Euphora 5 13 00:10 balloon 3.0 x 20 Balloon 10:32:28 Reinflate Mid RCA Euphora 6 19 00:10 balloon 3.0 x [address] 10:34:[address] stent Prox RCA Medtronic 1 19 00:10 Integrity 3.0 X 18 stent Device Usage Item Name Manufacture Quantity Catalog Number Hospital Part Current [facility] Lot# / Charge Number Stock Stock Serial# Code Tegaderm 4 1 [id number] [id number] [id number] 5 x 4 Acist Acist 1 38640 526279 433857 395431 5 Manifold Medical Systems Inc Acist Acist 1 66965 631136 913899 797619 20 Syringe Medical Systems Inc Acist Hand Acist 1 54368 273055 006900 569640 5 Control Medical Systems Inc Bag Microtek 1 2001S 959159 26948 085066 5 [employer] Medline Cardinal 1 [id number] 168865 42768 178005 DoubleUp [facility] St Adolfo St Adolfo 1 909845 020812 231397 253800 30 260cm J .035 wire Merit Merit 1 [id number] 829695 094194 833563 15 MaulSoup Medical Inflation Kit Terumo 7Fr Terumo 1 SNS722 583752 582489 315538 5 Olney Sheath Najera Najera 2 [id number] 035286 071167 985571 5 Whisper J Vascular 300cm 0.014 guide wire Medtronic Medtronic 1 [id number] 636242 579189 124686 0 Launcher 7Fr HS I SH guide catheter Medtronic Medtronic 1 [id number] 831498 380878 633311 9 [id number] Integrity 3.0 X 30 stent [place] Sci [place] 1 [id number] 915071 855297 364079 1 [id number] DanceOn 3.0 X 20 balloon Medtronic Medtronic 1 [id number] 305916 289924 622769 3 [id number] Integrity 3.0 X 18 stent Euphora 3.0 Medtronic 1 [id number] 119592 459948 974258 5 [id number] x 20 Balloon Cordis 4Fr Cardinal 1 532-580 867972 523021 667535 5 JB3 Health catheter Cordis Cardinal 1 [id number] 973868 580538 513458 10 Tempo 5Fr Health UF catheter Cordis 7Fr Cardinal 1 EX700 713167 154256 564109 5 [facility] Signature Audit [place] Stage Time Signature Unsigned Intra-Procedure 03/01/2017 Tulio Hammond 10:47:19 AM RT(R) Signatures Monitor : Tulio Hammond RT Signature : Date : Time : [facility] [address] [place] [address]
--- NOTE | ~2017-03-01 | OP ---
PATIENT NAME: RAJIV AYON MEDICAL RECORD: [id number] :40 LOCATION:D.M2 D.2125 ADMISSION DATE: SURGEON: SHAMIR COLMENARES MD DATE OF OPERATION: 03/01/2017 PROCEDURE: Four-vessel carotid and vertebral angiography. INDICATIONS: Dizziness, carotid vascular disease. PROCEDURE IN DETAIL: After informed consent was obtained and after detailed explanation of risks, benefits as well as alternative therapies, the patient elected to proceed with angiogram and carotid and vertebral angiography. The right femoral area had a pre-existing sheath from a coronary intervention. All catheters exchanged through this sheath. FINDINGS: There was subselection of each subclavian as well as the left carotid. RIGHT SIDE: The common internal and external carotids have mild plaquing, none greater than 20%, no flow-limiting stenosis. Vertebral artery has mild plaquing, none greater than 20%. LEFT SYSTEM: The common internal and external carotids have mild plaquing, none greater than 20%-30%, no flow-limiting stenosis. The vertebral artery has mild plaquing, none greater than 30%. OVERALL IMPRESSION: Minimal carotid vascular disease is present. No flow-limiting stenosis. Symptomatology is not secondary to carotid vascular insufficiency. TRANSINT:[id number] Voice Confirmation ID: [id number] DOCUMENT ID: [id number] SHAMIR COLMENARES MD CC: [id number] DICTATION DATE: 03/01/17 1048 MOLD FILLER PLASTIC DOLLS: 03/01/17 1146 [facility] [address] [place] [address]
--- NOTE | ~2017-03-01 | OP ---
PATIENT NAME: RAJIV AYON MEDICAL RECORD: [id number] :40 LOCATION:D.CAT ADMISSION DATE: SURGEON: SHAMIR COLMENARES MD DATE OF OPERATION: 03/02/2017 PROCEDURE: 1. Stent placement, popliteal right. 2. AEROSOL LINE OPERATOR, popliteal right. 3. Unilateral extremity angiography. INDICATION: Claudication and peripheral vascular disease. PROCEDURE PERFORMED: After informed consent was obtained and after a detailed explanation of risks, benefits as well as alternative therapies, the patient elected to proceed with angiogram and angioplasty. The left femoral area was prepped and draped in normal sterile fashion. Left femoral artery was cannulated via modified Seldinger technique with placement of a 6-Belizean pionph-eys-akmn sheath. All catheters exchanged through this sheath. FINDINGS: The right popliteal is subtotally occluded. This was addressed with a 4.0 coronary balloon. Stenting was undertaken with a 5.0 x 30 SMART stent. Result was 0% residual stenosis. OVERALL IMPRESSION: Successful percutaneous transluminal angioplasty stent of the popliteal right going from 99% initial stenosis to 0% residual. TRANSINT:[id number] Voice Confirmation ID: [id number] DOCUMENT ID: [id number] SHAMIR COLMENARES MD CC: [id number] DICTATION DATE: 03/02/17 1258 DIGITAL ASSET COORDINATOR: 03/02/17 1950 [facility] CLI 03/02/17 [place] [place] [address]
--- NOTE | ~2017-03-01 | HP ---
PATIENT: RAJIV VALDES MEDICAL RECORD: [id number] ACCOUNT: [id number] LOCATION:[facility] : 40 ADMISSION DATE: 03/01/17 HISTORY AND PHYSICAL EXAMINATION ADMITTING DIAGNOSES: 1. Angina. 2. Coronary artery disease. 3. Recent PTCA stent of the LAD with concomitant disease of the left circumflex and RCA. 4. Hypertension. 5. Hyperlipidemia. HISTORY OF PRESENT ILLNESS: Mrs. Valdes presents with unstable angina, found to have severe 3-vessel coronary artery disease, underwent successful PTCA stent of the LAD. She is now brought back for PTCA stent of the left circumflex and RCA in a staged fashion. PHYSICAL EXAMINATION: GENERAL APPEARANCE: Well-nourished, well-developed, appears stated age. Level of distress, comfortable. PSYCHIATRIC: Mental status, alert, normal affect. Orientation, oriented to time, place and person. EYES: Lids and conjunctiva, noninjected. No discharge, no pallor. ENT: Lips, teeth, gums, normal dentition. Oropharynx, no cyanosis, no pallor. NECK: Carotid arteries, bilateral normal upstroke, no bruits, no thrills. JUGULAR VEINS: No jugular venous pressure or distention. CERVICAL LYMPH NODES: Nontender, nonenlarged. THYROID: Not enlarged. Nontender. No nodules. LUNGS: Respiratory effort, unlabored. CHEST: Normal curvature. No thoracic deformity. No chest wall tenderness. Percussion, resonant. Auscultation, clear. No wheezes, no rales, no rhonchi. CARDIOVASCULAR: Precordial exam, nondisplaced. No heaves or pericardial thrills. Rate and rhythm, regular. Heart sounds, normal S1, normal S2. No S3, no gallop, no rub. Systolic murmur, not heard. Diastolic murmur, not heard. EXTREMITIES: No cyanosis, no edema. Peripheral pulses, full and equal in all extremities, except as noted. No bruits appreciated. ABDOMEN: Soft, nondistended. Normal aorta. No bruit. Nontender. No masses. Liver, nontender, no hepatomegaly. Spleen, nontender, no splenomegaly. MUSCULOSKELETAL: No joint tenderness. No joint swelling. No erythema. NEUROLOGICAL: Normal gait, normal strength, normal tone. SKIN: Warm and dry. REVIEW OF SYSTEMS: The patient reports easy bruising but reports no swollen glands. The patient reports no fever, no night sweats, no significant weight gain, no significant weight loss. No significant exercise tolerance. The patient reports no dry eyes, no irritation, no vision change. Patient reports no difficulty hearing and no ear pain. Patient reports no frequent nose bleeds or nose and sinus problems. Patient reports on arm pain on exertion. No shortness of breath while lying down. No history of heart murmur. Patient reports no cough, no wheezing or coughing up blood. Patient reports no abdominal pain, no vomiting. Normal appetite. No diarrhea and not vomiting blood. No nausea and no constipation. Patient reports no incontinence. No difficulty urinating. No hematuria. No increased frequency. Patient reports no muscle aches. No weakness, no arthralgias, no back pain. No swelling of the HISTORY AND PHYSICAL [id number] GABORAJIV TRIPATHI extremities. Patient reports no abnormal mole, no jaundice, no rashes. Reports no loss of consciousness. No weakness and no numbness. No seizures, dizziness, or headaches. The patient reports no depression, no sleep disturbance, feeling safe in a relationship and no alcohol abuse. Patient reports on fatigue. Reports no runny nose or sinus pressure. No itching, no hives, and no frequent sneezing. OVERALL IMPRESSION: We will proceed with transcatheter revascularization of the left circumflex and RCA. TRANSINT:[id number] Voice Confirmation ID: [id number] DOCUMENT ID: [id number] SHAMIR COLMENARES MD CC: [id number] DICTATION DATE: 03/01/1733 TROPHY ASSEMBLER: 03/01/[address] [facility] [address] [place] [address]
[~2017-03-01 07:47] MED LIST: CARDIZEM CD300 MG PO; PLAVIX75 MG PO; PROAIR HFA8.5 GM INH; PROVENTIL/2.5 MG/3 M INH; PULMICORT0.25 MG/1 INH; SYNTHROID112 MCG PO
[2017-03-01 08:34] VITALS: BP 141/55; Ht 152.4 cm; Wt 52.3 kg
[2017-03-01 08:54] LABS: BASOPHILS 0.6 % (0.0-2.0); HEMOGLOBIN 13.4 g/dL (12-16); IMMATURE GRANULOCYTES 0.3 % (0-5); LYMPHOCYTES 19.8 % (15-50); MCH 30.9 pg (26.0-34.0); MCHC 33.5 g/dL (31.0-37.0); MCV 92.2 fL (80.0-100.0); MEAN PLATELET VOLUME 9.8 fL (7.4-10.4); MONOCYTES 10.2 % (2-11); NEUTROPHILS 63.1 % (40-80); RBC 4.34 10x6/uL (4.00-5.40); RDW 12.2 % (11.5-14.5); WBC 9.7 10x3/uL (4.8-10.8)
[2017-03-01 08:55] LABS: PLATELET COUNT 342 10x3/uL (130-400)
[2017-03-01 09:17] LABS: CALC OSMOLALITY 279 mosm/kg (275-300); CALCIUM 8.9 mg/dL (8.5-10.1); CARBON DIOXIDE 23.8 mmol/L (21.0-32.0); CHLORIDE - SERUM 106 mmol/L (98-107); CREATININE - SERUM 0.5 mg/dL (0.6-1.3); GLUCOSE 93 mg/dL (74-106); POTASSIUM - SERUM 4.1 mmol/L (3.5-5.1); SODIUM 140 mmol/L (136-145); UREA NITROGEN 15 mg/dL (7-18); eGFR NON AFRICAN AMERICAN > 90 mL/min (90-120)
--- NOTE | 2017-03-01 11:29 | NUR ---
RECIEVED FROM FILLING STATION LABORER. ALERT, ORIENTED. V/S STABLE. TELEMERTY SHOWS SR. RIGHT GROIN SOFT WITH DRSG DRY AND INTACT. PPP. FAMILY AT BEDSIDE. WILL MONITOR
--- NOTE | 2017-03-01 12:39 | NUR ---
LYING QUIETLY. GROIN SOFT WITH DRSG DRY AND INTACT. NO BLEEDING PPP. TELEMERTY SHOWS SR. WILL MONITOR
[2017-03-01 15:52] VITALS: BP 126/55
--- NOTE | 2017-03-01 18:04 | NUR ---
RESTING QUIELTY IN BED. NO APPARENT DISTRESS. MONITOR SHOWS ST @ 125. WILL CONTINUE TO MONITOR.
--- NOTE | 2017-03-01 18:26 | NUR ---
LYING QUIETLY. DENIES ANY NEEDS. RIGHT GROIN SOFT, NO BLEEDING. CONSENTS SIGNED FOR TOMORROW. TELEMERTY SHOWS SR. WILL MONITOR
--- NOTE | 2017-03-01 19:30 | NUR ---
ASSESSMENT COMPLETE, DENIES NEEDS AT THIS TIME. UP AD MARLON W/O DIFF. RT GROIN XO SEAL INTACT. PPP BILAT WITH SKIN WARM AND DRY. HOB UP SR UP X2, C/L IN REACH. HR SR PER REAL ESTATE DIRECTOR. CONTINUE TO MONITOR.
[2017-03-01 21:58] VITALS: BP 127/57
--- NOTE | 2017-03-01 22:37 | NUR ---
EYES CLOSED, RESP EVEN AND UNLAB WITH NO S/S OF ACUTE DISTRESS NOTED. C/L IN REACH.
[2017-03-02 02:03] VITALS: BP 126/55
[2017-03-02 05:44] VITALS: BP 117/51
[2017-03-02 07:52] VITALS: BP 122/73
[2017-03-02 11:13] VITALS: BP 137/52
--- NOTE | 2017-03-02 12:09 | NUR ---
ALERT AND ORIENTED X4. PREOP COMPLETE FOR COUNCILPERSON. CONSENTS SIGNED ON CHART. TAKEN TO COUNCILPERSON VIA BED. CONTINUE PLAN OF CARE AND SAFETY PRECAUTIONS.
--- NOTE | 2017-03-02 13:22 | NUR ---
ARRIVE BACK TO ROOM VIA BED FROM VACUUM FRAME OPERATOR. SEDATED. AROUSES TO STIMULI. LT GROIN DRESSING CLEAN DRY INTACT. FREE FROM BLEEDING. NO HEMATOMA. RT PEDAL PULSE +2. LT PEDAL PULSE +1. NO CHANGE PRIOR TO STENT. FAMILY AT BEDSIDE. IV INFUSING ORDERED. BP-140/56, P-76bpm, R-20, O2-98% 2L NC. CONTINUE PLAN OF CARE. REMAIN FLAT FOR NEXT 4HRS. BED LOCKED AND LOW. CALL LIGHT IN REACH. TWO SIDERAILS UP.
[2017-03-02 14:25] LABS: BASOPHILS 0.6 % (0.0-2.0); EOSINOPHILS 7.8 % (0-7); HEMATOCRIT 36.8 % (36.0-48.0); IMMATURE GRANULOCYTES 0.3 % (0-5); LYMPHOCYTES 27.8 % (15-50); MCH 30.4 pg (26.0-34.0); MCHC 32.6 g/dL (31.0-37.0); MCV 93.2 fL (80.0-100.0); MEAN PLATELET VOLUME 9.6 fL (7.4-10.4); NEUTROPHILS 54.5 % (40-80); PLATELET COUNT 326 10x3/uL (130-400); RBC 3.95 10x6/uL (4.00-5.40); RDW 12.3 % (11.5-14.5); WBC 10.4 10x3/uL (4.8-10.8)
[2017-03-02 15:25] LABS: CALC OSMOLALITY 275 mosm/kg (275-300); CALCIUM 8.2 mg/dL (8.5-10.1); CARBON DIOXIDE 23.4 mmol/L (21.0-32.0); CHLORIDE - SERUM 101 mmol/L (98-107); CREATININE - SERUM 0.5 mg/dL (0.6-1.3); GLUCOSE 88 mg/dL (74-106); POTASSIUM - SERUM 4.3 mmol/L (3.5-5.1); SODIUM 139 mmol/L (136-145); eGFR NON AFRICAN AMERICAN > 90 mL/min (90-120)
[2017-03-02 15:27] LABS: UREA NITROGEN 9 mg/dL (7-18)
--- NOTE | 2017-03-02 17:02 | NUR ---
BED REST UP. GROIN STABLE.
--- NOTE | 2017-03-02 17:28 | NUR ---
IV AND TELEMETRY DCD. DC PLANS GIVEN. UNDERSTANDING VOICED. ESCORTED TO CAR BY W/C.
== END 2017-03-02 17:29 | disposition home or self-care (01) ==
LOC: D.CATH 07:47 → D.M2 07:47 → D.CATH 10:00 → D.M2 10:50 → D.CATH 03-02 17:29
PROVIDERS: Internal Medicine Interventional Cardiology
DX: I25.110 Atherosclerotic heart disease of native coronary artery with unstable angina pectoris (principal); I70.213 Atherosclerosis of native arteries of extremities with intermittent claudication, bilateral legs; I65.23 Occlusion and stenosis of bilateral carotid arteries; I10 Essential (primary) hypertension; E78.5 Hyperlipidemia, unspecified; Z95.5 Presence of coronary angioplasty implant and graft; J44.9 Chronic obstructive pulmonary disease, unspecified
CPT/HCPCS: 92928; 36222; 36225; 37226; C9600

== ENCOUNTER 2017-03-14 08:22 | Outpatient (CLI) | payer MEDICARE, BC ==
[~2017-03-14] VITALS: Ht 152.4 cm; Wt 52.3 kg
--- NOTE | ~2017-03-14 | OP ---
PATIENT NAME: RAJIV AYON MEDICAL RECORD: [id number] :40 LOCATION:D.CAT ADMISSION DATE: SURGEON: SHAMIR COLMENARES MD DATE OF OPERATION: 03/14/2017 PROCEDURES: 1. Stent placement, left SFA. 2. COMMUNITY DIRECTOR, left SFA. 3. Unilateral extremity angiography. INDICATIONS: Claudication and peripheral vascular disease. PROCEDURE IN DETAIL: After informed consent was obtained and after detailed explanation of risks, benefits as well as alternative therapies, the patient elected to proceed with angiogram and angioplasty. The right femoral area was prepped and draped in normal sterile fashion. The right femoral artery was cannulated via modified Seldinger technique with placement of 6-Japanese sheath. All catheters exchanged through this sheath. FINDINGS: The left SFA has a long total occlusion in the mid vessel. We are able to traverse this with a 5-Japanese glide catheter. Ballooning was undertaken with a 6.0 balloon yielding suboptimal result with severe intimal dissection. Stenting was undertaken with a 6 x 150 SMART stent. Result was 0% residual stenosis with quaker of brisk distal flow. IMPRESSION: Successful percutaneous transluminal angioplasty stent of the left superficial femoral artery going from 100% initial stenosis chronic total occlusion to 0% residual stenosis. TRANSINT:[id number] Voice Confirmation ID: [id number] DOCUMENT ID: [id number] SHAMIR COLMENARES MD CC: [id number] DICTATION DATE: 03/14/17 1142 BUSINESS OBJECTS: 03/14/17 1543 REG [facility] [address] [place] [address]
--- NOTE | ~2017-03-14 | HP ---
PATIENT: RAJIV VALDES MEDICAL RECORD: [id number] ACCOUNT: [id number] LOCATION:[facility] : 40 ADMISSION DATE: 03/14/17 HISTORY AND PHYSICAL EXAMINATION ADMITTING DIAGNOSES: 1. Claudication. 2. Peripheral vascular disease. 3. 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 HISTORY OF PRESENT ILLNESS: Mrs. Valdes has a severe left leg claudication. She underwent successful TEACHING MANAGER stent of the right leg. She is now brought back for attempted TEACHING MANAGER stent of the left leg. PHYSICAL EXAMINATION: GENERAL APPEARANCE: Well-nourished, well-developed, appears stated age. Level of distress, comfortable. PSYCHIATRIC: Mental status, alert, normal affect. Orientation, oriented to time, place and person. EYES: Lids and conjunctiva, noninjected. No discharge, no pallor. ENT: Lips, teeth, gums, normal dentition. Oropharynx, no cyanosis, no pallor. NECK: Carotid arteries, bilateral normal upstroke, no bruits, no thrills. JUGULAR VEINS: No jugular venous pressure or distention. CERVICAL LYMPH NODES: Nontender, nonenlarged. THYROID: Not enlarged. Nontender. No nodules. LUNGS: Respiratory effort, unlabored. CHEST: Normal curvature. No thoracic deformity. No chest wall tenderness. Percussion, resonant. Auscultation, clear. No wheezes, no rales, no rhonchi. CARDIOVASCULAR: Precordial exam, nondisplaced. No heaves or pericardial thrills. Rate and rhythm, regular. Heart sounds, normal S1, normal S2. No S3, no gallop, no rub. Systolic murmur, not heard. Diastolic murmur, not heard. EXTREMITIES: No cyanosis, no edema. Peripheral pulses, full and equal in all extremities, except as noted. No bruits appreciated. ABDOMEN: Soft, nondistended. Normal aorta. No bruit. Nontender. No masses. Liver, nontender, no hepatomegaly. Spleen, nontender, no splenomegaly. MUSCULOSKELETAL: No joint tenderness. No joint swelling. No erythema. NEUROLOGICAL: Normal gait, normal strength, normal tone. SKIN: Warm and dry. REVIEW OF SYSTEMS: The patient reports easy bruising but reports no swollen glands. The patient reports no fever, no night sweats, no significant weight gain, no significant weight loss. No significant exercise tolerance. The patient reports no dry eyes, no irritation, no vision change. Patient reports no difficulty hearing and no ear pain. Patient reports no frequent nose bleeds or nose and sinus problems. Patient reports on arm pain on exertion. No shortness of breath while lying down. No history of heart murmur. Patient reports no cough, no wheezing or coughing up blood. Patient reports no abdominal pain, no vomiting. Normal appetite. No diarrhea and not vomiting blood. No nausea and no constipation. Patient reports no incontinence. No difficulty urinating. No hematuria. No increased frequency. Patient reports no muscle aches. No weakness, no arthralgias, no back pain. No swelling of the extremities. Patient reports no abnormal mole, no jaundice, no rashes. Reports no loss of consciousness. No weakness and no numbness. No seizures, dizziness, or headaches. The patient reports no depression, no sleep disturbance, feeling safe in a relationship and no alcohol abuse. Patient reports on fatigue. HISTORY AND PHYSICAL [id number] RAJIV VALDES Reports no runny nose or sinus pressure. No itching, no hives, and no frequent sneezing. 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 We will try transcatheter revascularization. If not, we will be committed to surgical revascularization. TRANSINT:[id number] Voice Confirmation ID: [id number] DOCUMENT ID: [id number] SHAMIR COLMENARES MD CC: [id number] DICTATION DATE: 03/14/17 1016 ROTARY LITHOGRAPHIC PRESS OPERATOR: 03/14/17 1030 [facility] [address] [place] [address]
--- NOTE | ~2017-03-14 | HEMODYNAMI ---
PATIENT:RAJIV AYON MEDICAL RECORD: [id number] : 40 LOCATION:DRACHAEL ADMISSION DATE: 03/14/17 Generatedon:03/14/201711:49 Patient name: RAJIV AYON Patient #: [id number] SSN: : Date of study: 03/14/2017 Page: Of Hemodynamic Procedure Report Patient Data Patient Demographics Procedure consent was obtained First Name: RAJIV Gender: Female Last Name: GABO : 1940 Patient #: [id number] Age: 76 year(s) Race: Unknown Additional ID: [id number] Contact details [address]: [address] [place] [address] State: [place] City: [place] Zip code: [address] Past Medical History Allergies Allergen Reaction Date Comments Reported Other allergy 02/25/2017 FOODS Admission Admission Data Admission Date: 03/14/2017 Admission Time: 8:22 Lab Results Lab Result Date: 03/14/2017 Lab Result Time: 0:00 Biochemistry Name Units Result Min Max BUN mg/dl 11 --(-*--)-- 7 18 Creatinine mg/dl 0.8 --(-*--)-- 0.6 1.3 CBC Name Units Result Min Max Hemoglobin g/dl 13 -*(----)-- 13.5 17.5 Procedure Procedure Types Cath Procedure Miscellaneous Procedures Moderate Sedation up to 30 minutes Peripheral vascular Intervention Stent Stent-Fem/Popw/plasty Procedure Description Procedure Date Procedure Date: 03/14/2017 Procedure Start Time: 11:18 Procedure End Time: 11:48 Procedure Staff Name Function Lance Paez MD Performing Physician Farhad Sosa RT Scrub Bryanna Velasquez RN Nurse Guillermo Hutchinson RT Monitor Procedure Data Cath Procedure Fluoroscopy Diagnostic fluoroscopy Total fluoroscopy Time: 6 time: 6 min min Diagnostic fluoroscopy Total fluoroscopy dose: 42 dose: 42 mGy mGy Contrast Material Contrast Material Type Amount (ml) Isovue 300 30 Entry Location Entry Primary Successful Side Size Upsize Upsize Entry Closure Succes sful Closure Location (Fr) 1 (Fr) 2 (Fr) Remarks Device Remarks Femoral Right 6 Fr 6 Fr 6 Fr Exoseal artery Short Long Short Diagnostic catheters Device Type Used For End Catheter Placement Diagnostic 5Fr IMT Catheter Procedure Complications No complications Procedure Medications Medication Administration Route Dosage Oxygen NC 2 l/min Heparin Flush Bag added to field 2 bags (1000units/500ml NS) Lidocaine 2% added to field 20 Versed I.V. 1 mg Fentanyl I.V. 50 mcg Versed I.V. 0.5 mg Fentanyl I.V. 25 mcg Versed I.V. 0.5 mg Fentanyl I.V. 25 mcg Fentanyl I.V. 25 mcg Heparin Bolus I.V. 5000 units Fentanyl I.V. 25 mcg Fentanyl I.V. 50 mcg Hemodynamics Rest HGB: 13 (g/dl) Heart Rate: 80 (bpm) Snapshots Pre Cath Intra NCS Post Cath Vital Signs Time Heart Resp SPO2 etCO2 [id number] NIBP (mmHg) Rhythm Pain Sedation Rate (ipm) (%) (mmHg) (mmHg) Status Level (bpm) 11:03:52 86 21 96 0 0 156/65(111) NSR 0 (11) 10(A) , No pain 11:08:08 79 18 98 0 0 155/73(111) NSR 0 (11) 10(A) , No pain 11:12:26 78 16 99 0 0 143/66(111) NSR 0 (11) 10(A) , No pain 11:16:42 69 15 98 0 0 130/58(98) NSR 0 (11) 10(A) , No pain 11:20:52 76 16 97 0 0 130/63(109) NSR 0 (11) 10(A) , No pain 11:25:04 69 16 97 0 0 131/59(100) NSR 0 (11) 9(A) , No pain 11:29:16 73 16 97 0 0 125/57(93) NSR 0 (11) 9(A) , No pain 11:33:25 68 16 97 0 0 128/60(100) NSR 0 (11) 9(A) , No pain 11:37:35 71 17 98 0 0 130/65(103) NSR 0 (11) 9(A) , No pain 11:39:50 72 16 98 0 0 124/59(98) NSR 0 (11) 9(A) , No pain 11:44:00 72 8 97 0 0 124/56(101) NSR 0 (11) 9(A) , No pain 11:48:12 71 11 97 0 0 122/52(97) NSR 0 (11) 9(A) , No pain Medications Time Medication Route Dose Verified Delivered Reason Notes Effectiveness by by 11:10:03 Oxygen NC 2 Lance Bryanna Per physician l/min Jeannine Velasquez RN 11:10:12 Heparin Flush added 2 Lance Lance used for Bag to bags Jeannine Paez MD procedure (1000units/500ml field NS) 11:10:19 Lidocaine 2% added 20ml Lance Lance used for to vial Jeannine Paez MD procedure field 11:15:00 Versed I.V. 1 mg Lance Bryanna for sedation Jeannine Velasquez RN 11:15:10 Fentanyl I.V. 50 Lance Bryanna for sedation mcg Jeannine Velasquez RN 11:17:31 Versed I.V. 0.5 Lance Bryanna for sedation mg Jeannine Velasquez RN 11:17:38 Fentanyl I.V. 25 Lance Bryanna for sedation mcg Jeannine Velasquez RN 11:19:39 Versed I.V. 0.5 Lance Bryanna for sedation mg Jeannine Velasquez RN 11:19:46 Fentanyl I.V. 25 Lance Bryanna for sedation mcg Jeannine Velasquez RN 11:21:52 Fentanyl I.V. 25 Lance Bryanna for sedation mcg Jeannine Velasquez RN 11:23:17 Fentanyl I.V. 25 Lance Bryanna for sedation mcg Jeannine Velasquez RN 11:26:30 Heparin Bolus I.V. 5000 Lance Bryanna for dose units Jeannine Velasquez RN anticoagulation verified wt dr paez 11:33:36 Fentanyl I.V. 50 Lance Bryanna for sedation mcg Jeannine Velasquez RN Procedure Log Time Note 10:35:43 Farhad Sosa RT(R) sent for patient. Start room use. 10:43:37 ACC Patient presents with No angina; no symptoms CCS Anginal Class 2--Slight limitation of ordinary activity. 10:43:40 Diagnostic Cath status Elective 10:43:56 Time tracking: Regular hours 10:44:02 Plan of Care:Hemodynamics will remain stable., Cardiac rhythm will remain stable., Comfort level will be maintained., Respiratory function will remain adequate., Patient/ family verbilizes understanding of procedure., Procedure tolerated without complication., Recovers from procedure without complications.. 10:50:03 Patient received from Pre/Post Procedure Room to CCL 1 Alert and oriented. Tansferred to table in Supine position. 11:02:18 Warm blankets applied, and ricardo hugger turned on for patient comfort. 11:02:19 Correct patient and procedure confirmed by team. 11:02:20 Signed procedure consent form obtained from patient. 11:02:20 ECG and BP/O2 sat monitors applied to patient. 11:02:38 Vital chart was started 11:10:03 Oxygen 2 l/min NC was administered by Bryanna Velasquez RN; Per physician; 11:10:12 Heparin Flush Bag (1000units/500ml NS) 2 bags added to field was administered by Lance Paez MD; used for procedure; 11:10:19 Lidocaine 2% 20ml vial added to field was administered by Lance Paez MD; used for procedure; 11:11:03 Baseline sample Acquired. 11:11:06 Rhythm: sinus rhythm 11:11:08 Full Disclosure recording started 11:13:21 Pre-procedure instructions explained to patient. 11:13:22 Pre-op teaching completed and patient verbalized understanding. 11:13:25 Family in waiting room. 11:13:26 Patient NPO since Midnight. 11:13:28 Is the patient allergic to Iodine/contrast media? No. 11:13:30 Is patient on blood thinner?Yes 11:13:35 ACC The patient was administered the following blood thiners within the last 24 hours: ACCPlavix 11:13:37 Patient diabetic? No. 11:13:38 ----Pre-sedation anethsthesia assessment.---- 11:13:40 Previous problem with sedation/anesthesia? No ? 11:13:42 Snore? Yes 11:13:44 Sleep apnea? No 11:13:45 Deviated septum? No 11:13:46 Opens mouth fully? Yes 11:13:47 Sticks out tongue? Yes 11:13:50 Airway obstruction? No ? 11:13:52 Dentures? No ? 11:13:57 Pre procedure: left dorsailis pedis pulse 0-Absent 11:14:00 Patient pain scale 0/10 ?. 11:14:08 IV patent on arrival in left hand with 0.9% NaCl at 10ml/hr. 11:14:30 Lab Result : BUN 11 mg/dl 11:14:30 Lab Result : Creatinine 0.8 mg/dl 11:14:30 Lab Result : Hemoglobin 13 g/dl 11:14:33 Lab results completed and on chart. 11:14:38 Right groin area was prepped with chlora-prep and draped in sterile fashion 11:14:40 Alarms reviewed by R. N. 11:14:41 Sharps counted by scrub and verified by R.N. 11:14:48 Pre procedure: right dorsailis pedis pulse 2+ Normal; easily identifiable; not easily obliterated 11:14:52 --------ALL STOP TIME OUT------ 11:14:52 Final Timeout: patient, procedure, and site verified with staff and physician. All members of the team are in agreement. 11:14:53 Right groin site verified by team. 11:14:56 Physical assessment completed. ASA score P 2 - A patient with mild systemic disease as per Lance Paez MD. 11:15:00 Versed 1 mg I.V. was administered by Bryanna Velasquez RN; for sedation; 11:15:00 Sedation plan: IV Moderate Sedation Versed, Fentanyl 11:15:10 Fentanyl 50 mcg I.V. was administered by Bryanna Velasquez RN; for sedation; 11:16:51 Use device set Femoral PCI 11:16:52 Acist Syringe opened to sterile field. 11:16:53 Acist Hand Control opened to sterile field. 11:16:53 Bag Decanter opened to sterile field. 11:16:54 Medline Cath Pack opened to sterile field. 11:16:54 Terumo 6Fr Banner Sheath opened to sterile field. 11:16:54 St Adolfo 260cm J .035 wire opened to sterile field. 11:16:55 Merit BasixCompak Inflation Kit opened to sterile field. 11:16:56 Acist Manifold opened to sterile field. 11:16:57 Tegaderm 4 x 4 opened to sterile field. 11:17:23 Arrow 6Fr 45cm Sheath opened to sterile field. 11:17:31 Versed 0.5 mg I.V. was administered by Bryanna Velasquez RN; for sedation; 11:17:38 Fentanyl 25 mcg I.V. was administered by Bryanna Velasquez RN; for sedation; 11:18:02 Terumo Angled SS 180cm glide wire opened to sterile field. 11:18:06 Procedure started. 11:18:23 Local anesthetic to right femoral artery with Lidocaine 2% by Lance Paez MD.INITIAL ACCESS ONLY 11:18:46 Zero performed for pressure channel P1 11:18:54 Zero performed for pressure channel P1 11:19:39 Versed 0.5 mg I.V. was administered by Bryanna Velasquez RN; for sedation; 11:19:46 Fentanyl 25 mcg I.V. was administered by Bryanna Velasquez RN; for sedation; 11:20:43 H&P Date Dictated: 03/14/2017 Within 30 days and on chart., H&P Addendum completed by physician on day of procedure. (MUST COMPLETE FOR ALL OUTPATIENTS). 11:21:52 Fentanyl 25 mcg I.V. was administered by Bryanna Velasquez RN; for sedation; 11:23:17 Fentanyl 25 mcg I.V. was administered by Bryanna Velasquez RN; for sedation; 11:25:41 A 6 Fr Short sheath was inserted into the Right Femoral artery 11:26:06 Baseline sample Acquired. 11::16 5 Fr IMT guide catheter was inserted over the wire 11::24 GLIDE wire advanced. 11:26:30 Heparin Bolus 5000 units I.V. was administered by Bryanna Velasquez RN; for anticoagulation; dose verified wtih dr paez 11:26:33 AROUND HORN 11::45 Guide catheter removed. 11::52 Sheath upsized to a 6 Fr Long. 11:30:27 5 Fr GLIDE CATH guide catheter was inserted over the wire 11:30:54 [place] GIVTED Choice PT Extra Support J 300cm .014 gu opened to sterile field. 11:31:06 CPTES wire advanced. 11:31:11 Guide catheter removed. 11:32:20 Inflation number: 1 A Saber 6.0 x 8 x 150 balloon was prepped and advanced across the Mid Superficial Femoral, Left, then inflated to 9 MATT for 0:10 (min:sec). 11:32:56 Inflation number: 2 The Saber 6.0 x 8 x 150 balloon was reinflated across the Mid Superficial Femoral, Left, to 9 MATT for 0:34 (min:sec). 11:33:05 Balloon removed over the wire. 11:33:36 Fentanyl 50 mcg I.V. was administered by Bryanna Velasquez RN; for sedation; 11:33:40 Terumo TORQUE DEVICE PLASTIC .038 opened to sterile field. 11:33:44 A Diagnostic 5Fr IMT Catheter was advanced over the wire and used for . 11:34:30 Cordis SMART 6 X 150 X 120 stent was deployed across Mid Superficial Femoral, Left . 11:34:32 Stent catheter was removed intact over wire. 11:35:39 Inflation number: 3 The Saber 6.0 x 8 x 150 balloon was reinflated across the Mid Superficial Femoral, Left, to 9 MATT for 0:16 (min:sec). 11:35:49 Inflation number: 4 The Saber 6.0 x 8 x 150 balloon was reinflated across the Mid Superficial Femoral, Left, to 9 MATT for 0:10 (min:sec). 11:36:03 Balloon removed over the wire. 11:36:04 Wire removed. 11:36:13 Sheath upsized to a 6 Fr Short. 11:36:13 Sheath removed intact; hemostasis achieved with Exoseal to the Right Femoral artery. 11:36:23 Cordis 6Fr Exoseal opened to sterile field. 11:37:01 Terumo 5FR STRAIGHT 100CM glide catheter opened to sterile field. 11:37:08 Procedure ended.(Physican Out) 11:37:26 Fluoroscopy time 06.00 minutes. 11:37:39 Flurop Dose total: 42 11:37:39 Fluoroscopy dose: 42 mGy 11:37:56 Contrast amount:Isovue 300 30ml. 11:38:26 Sharps counted by scrub and verified by R.N. 11:38:27 Insertion/operative site no bleeding no hematoma. 11:38:30 Post-op/insertion site Right Femoral artery dressed using a 4 x 4 and Tegaderm. 11:38:35 Post right femoral artery:stable 11:38:37 Post Procedure Pulses reassessed and unchanged 11:38:45 Post procedure: right dorsailis pedis pulse 2+ Normal; easily identifiable; not easily obliterated. 11:38:48 Post procedure rhythm: sinus rhythm 11:38:52 Post procedure: left dorsailis pedis pulse 1+ Palpable, but thready & weak; easily obliterated. 11:38:53 Post procedure instruction explained to patient.Patient verbalizes understanding. 11:39:40 Procedure type changed to Cath procedure, Miscellaneous Procedures, Moderate Sedation up to 30 minutes, Peripheral vascular Intervention, Stent, Stent-Fem/Popw/plasty 11:40:11 Procedure and supply charges have been captured, reviewed, submitted and are correct. 11:40:15 Procedure Complication : No complications 11:48:23 Vital chart was stopped 11:48:24 See physician's report for complete and final results. 11:48:27 Report given to Pre/Post Procedure Room. 11:48:31 Patient transfered to Pre/Post Procedure Room with Stretcher. 11:48:40 Procedure ended. 11:48:40 Full Disclosure recording stopped 11:48:43 End room use (Document Last) Intervention Summary Intervention Notes Time ActionType Lesion and Equipment Action# Pressure Duration Attributes Used 11:32:20 Inflate Mid Saber 6.0 1 9 00:10 balloon Superficial x 8 x 150 Femoral, balloon Left 11:32:56 Reinflate Mid Saber 6.0 2 9 00:34 balloon Superficial x 8 x 150 Femoral, balloon Left 11:34:30 Deploy self Mid Cordis 1 expanding Superficial SMART 6 X stent Femoral, 150 X 120 Left stent 11:35:39 Reinflate Mid Saber 6.0 3 9 00:16 balloon Superficial x 8 x 150 Femoral, balloon Left 11:35:49 Reinflate Mid Saber 6.0 4 9 00:10 balloon Superficial x 8 x 150 Femoral, balloon Left Device Usage Item Name Manufacture Quantity Catalog Number Hospital Part Current Minim al Lot# / Charge Number Stock Stock Serial# Code Acist Acist 1 [id number] 706184 813448 152563 20 Syringe Medical Systems Inc Acist Hand Acist 1 38111 374586 761109 665733 5 [employer] Bag Microtek 1 2001S 967169 12488 671321 5 Adviqo. Medline Cardinal 1 [id number] 59788 967941 5 Cath Pack Health Terumo 6Fr Terumo 1 [id number] 211866 559647 674497 [address] Ad[address] Adolfo 1 279864 982240 975303 435813 30 260cm J .035 wire Merit Merit 1 [id number] 301824 067123 390321 15 Boosted BoardsixIndigeo Virtus Medical Inflation Kit Acist Acist 1 32114 885579 721054 188343 5 Satin [employer] Inc Tegaderm 4 3M 1 1626W 916789 654564 302430 5 x 4 Arrow 6Fr Teleflex 1 [id number] 089953 517476 344830 5 45cm Sheath Terumo Terumo 1 [id number] 604392 389231 5 Angled SS 180cm glide wire [place] Sci [place] 1 [id number] 730134 876180 425839 5 Choice PT Scientific Extra Support J 300cm .014 gu Saber 6.0 x Cardinal 1 [id number] 833906 275076 234615 5 8 x 150 Health balloon Terumo [place] 1 TD01 985086 995401 957971 5 TORQUE Scientific DEVICE PLASTIC .038 Diagnostic [place] 1 [id number] 307571 651620 92551 5 5Fr IMT Scientific Catheter Cordis Cardinal 1 [id number] 905408 620631 957218 0 SMART 6 X Health 150 X 120 stent Cordis 6Fr Cardinal 1 EX600 228854 401482 492027 10 Exoseal Health Terumo 5FR Terumo 1 [id number] 771276 73697 043907 4 STRAIGHT 100CM glide catheter Signature Audit [place] Stage Time Signature Unsigned Intra-Procedure 03/14/2017 Guillermo Hutchinson 11:49:10 AM RT(R) Signatures Monitor : Guillermo Hutchinson RT Signature : Date : Time : [facility] [address] [place] [address]
[2017-03-14 08:49] VITALS: BP 151/63; Ht 152.4 cm; Wt 52.3 kg
[2017-03-14 09:09] LABS: ANION GAP 12.9 mmol/L (8-16); CREATININE - SERUM 0.8 mg/dL (0.6-1.3); POTASSIUM - SERUM 3.9 mmol/L (3.5-5.1)
[2017-03-14 09:21] LABS: BASOPHILS 0.5 % (0-2); EOSINOPHILS 6.2 % (0-7); IMMATURE GRANULOCYTES 0.2 % (0-5); LYMPHOCYTES 19.5 % (15-50); MCH 30.4 pg (26.0-34.0); MCHC 32.5 g/dL (31.0-37.0); MCV 93.7 fL (80.0-100.0); MEAN PLATELET VOLUME 9.3 fL (7.4-10.4); MONOCYTES 7.4 % (2-11); NEUTROPHILS 66.2 % (40-80); RBC 4.27 10x6/uL (4.00-5.40); RDW 12.8 % (11.5-14.5); WBC 10.3 10x3/uL (4.8-10.8)
[2017-03-14 09:24] LABS: PLATELET COUNT 463 10x3/uL (130-400)
--- NOTE | 2017-03-14 12:34 | NUR ---
1215-RIGHT GROIN CDI, NO HEMATOMA OR BLEEDING NOTED, SOFT TO TOUCH, ON BEDPAN-C/O BURNING. REQUESTING COULTER. 1225-REFUSES COULTER AT THIS TIME, ABLE TO USE BEDPAN.
--- NOTE | 2017-03-14 13:00 | NUR ---
ANSWERED CALL TO ROOM WITH PATIENT NAUSEATED ORDERS RECIEVED WITH ZOFRAN GIVEN IV. 6 FR EXOSEAL R/GROIN CDI NO BLEEDING NO HEMATOMA NOTED
--- NOTE | 2017-03-14 16:30 | NUR ---
1245-16FR COULTER INSERTED PER FAMILIES REQUEST PER BAO ESCAMILLA RN 1305-PT REQUEST COULTER TO BE D'C- D'C PER BAO ESCAMILLARN
--- NOTE | 2017-03-14 16:34 | NUR ---
1545-IV D'C WITH CATH TIP INTACT, NO N/V-SANDWICH TRAY GIVEN. WRITTEN AND VERBAL INSTRUCTIONS GIVEN AND UNDERSTOOD. D'C HOME WITH FAMILY
== END 2017-03-14 16:00 | disposition home or self-care (01) ==
LOC: D.CATH 08:22
PROVIDERS: Internal Medicine Interventional Cardiology
DX: I70.212 Atherosclerosis of native arteries of extremities with intermittent claudication, left leg (principal); Z01.812 Encounter for preprocedural laboratory examination